=== PATIENT | female | born 1990 | race Caucasian/White ===

== ENCOUNTER 2020-05-11 11:43 | Outpatient (CLI) | payer OTHER, SELFPAY ==
--- NOTE | ~2020-05-11 | XR_ITS ---
EXAMINATION: XR hysterosalpingogram DATE: 05/11/2020 13:10 INDICATION: Infertility. TECHNIQUE: Fluoroscopy was performed by the radiologist during contrast infusion into the endometrial cavity of the uterus by the primary physician. Fluoroscopy exposure time was 0.1 minutes. The total number of images was 5. FINDINGS: The intracranial cavity is normal in morphology. The fallopian tubes are normal. There is n ormal free intraperitoneal spillage of contrast on either side. IMPRESSION: 1. Normal hysterosalpingogram. Reviewed, dictated and finalized at location A.
== END 2020-05-11 11:44 | disposition home or self-care (01) ==
PROVIDERS: PCP Registered Nurse; Visit Provider Obstetrics & Gynecology
DX: N97.9 Female infertility, unspecified (principal)
CPT/HCPCS: 58340; 74740; Q9966

== ENCOUNTER 2021-01-13 15:24 | Outpatient (CLI) | payer OTHER, SELFPAY ==
--- NOTE | ~2021-01-13 | US_ITS ---
EXAMINATION: US OB <= 14 weeks fetus EXAM DATE: 01/13/2021 16:08 INDICATION: For growth, dating. 1st trimester. TECHNIQUE: Pelvic obstetrical transabdominal sonogram was performed by a technologist. There are mu ltiple grayscale and Doppler images available for interpretation. There are no earlier studies of th is gestation for comparison. FINDINGS: Uterus measures 8.5 x 6.0 x 6.1 cm. There is intrauterine gestation sac. pole with heart rate confirmed at 163 beats per minute. The 1.5 cm crown-rump length corresponds to estimated gestational age by ultrasound of 7 weeks 6 days, estimated date of confinement 08/26/2021. Yolk sac i s identified. There is no sonographic evidence of subchorionic hemorrhage. The ovaries are both i dentified and are morphologically normal, vascular flow confirmed. IMPRESSION: Early live intrauterine gestation, age by ultrasound 7 weeks 6 days. Reviewed, dictated and finalized at location A. ARGE SUPERVISOR IMPRESSION: Early live intrauterine gestation, age by ultrasound 7 weeks 6 day s.
== END 2021-01-13 15:25 | disposition home or self-care (01) ==
PROVIDERS: PCP Registered Nurse; Visit Provider Student in an Organized Health Care Education/Training Program
DX: Z36.9 Encounter for antenatal screening, unspecified (principal); Z3A.01 Less than 8 weeks gestation of pregnancy
CPT/HCPCS: 76801

== ENCOUNTER 2021-07-20 16:33 | Outpatient (CLI) | payer OTHER, SELFPAY ==
--- NOTE | ~2021-07-20 | US_ITS ---
US OB follow up DATE: 07/20/2021 17:09 INDICATION: Evaluation of growth TECHNIQUE: Real-time imaging and Doppler analysis COMPARISON: 01/13/2021 obstetrical ultrasound FINDINGS: Live galvez intrauterine gestation, fetus in vertex presentation, longitudinal lie. Feta l heart rate 153 bpm. Fundal placenta. Amniotic fluid index measures 14.7 cm. (5th percentile TRANG: 7.9 cm; 95th percentile TRANG: 24.9 cm) Biparietal diameter 8.57 cm; 34 weeks 4 days Head circumference 30.66 cm; 34 weeks 1 day Abdominal circumference 30.44 cm; 34 weeks 3 days Femur length 6.59 cm; 34 weeks Composite age by Hadlock formula is 34 weeks 2 days +/- 2 weeks 3 days with TIAN of 08/29/2021, compare d to TIAN of 08/26/2021 based on the 01/13/2021 obstetrical ultrasound examination. Estimated weight is 2388 +/- 358.1 g. Femur length/BPD 76.92, within normal range of 71.0-87.0 Head circumference/abdominal circumference 1.01, within normal range of 0.94-1.11 Femur length/abdominal circumference 21.65, within normal range of 20.00-24.00 Femur length/head circumference 21.49, within normal range of 19.60-21.94 IMPRESSION: Normal interval growth since 01/13/2021 Reviewed, dictated and finalized at Location A. Reviewed, dictated and finalized at location A.
== END 2021-07-20 16:34 | disposition home or self-care (01) ==
LOC: ANHIMG 16:33
PROVIDERS: PCP Registered Nurse; Visit Provider Student in an Organized Health Care Education/Training Program
DX: Z34.93 Encounter for supervision of normal pregnancy, unspecified, third trimester (principal); Z3A.34 34 weeks gestation of pregnancy
CPT/HCPCS: 76816

== ENCOUNTER 2021-08-02 08:04 | Inpatient (IN) | payer OTHER, SELFPAY ==
[2021-08-02] VITALS (30 sets, daily range): BP systolic 71–146; BP diastolic 34–97; PULSE 70–107; RESP 16; TEMP 36.4–37.3; O2SAT 97; BMI 31.0
--- NOTE | 2021-08-02 08:04 | LDADM ---
This patient, Ania Bolanos, was admitted to Labor/Delivery/Recovery 108 on 08/02/21 at 08:04. Plans for labor, pain management and were discussed with patient. Patient/family oriented to hospital policies and general routines including ID bracelet, bed and alarms, visiting hours, pain management, procedures, bathroom and other care routines, personal items, smoking policy, room service/diet and guest tray routines, infant security routines, and visiting hours. Patient/Family are encouraged to report perceived risks to care and to ask questions if they do not understand what they are told or what they should do. See OBIX for further documentation.
[2021-08-02] MEDS: AMPICILLIN 2 GM/NS 100 ML 2 GM/100 ML BAG IVPB (09:48)
[2021-08-02] MEDS: LACTATED RINGERS 1,000 ML 125 ML IV CONT ×2 (09:49→19:45)
[2021-08-02 09:57] LABS: Basophils Percent Auto 0.3 % (0.2-1.2); Eosinophils Absolute Auto 0.1 K/mm3 (0-0.3); Eosinophils Percent Auto 0.9 % (0-4.4); Hematocrit 40.3 % (37.0-47.0); Hemoglobin 13.5 g/dL (12.0-15.0); Immature Granulocyte Absolute 0.04 K/mm3 (0.00-0.031); Immature Granulocyte Percent A 0.5 % (0-0.5); Lymphocytes Absolute Auto 0.68 K/mm3 (0.9-3.2); Lymphocytes Percent Auto 9.2 % (18.3-44.2); Mean Corpuscular HGB Conc 33.5 g/dl (32-36); Mean Corpuscular Hemoglobin 31.7 pg (26-34); Mean Corpuscular Volume 94.6 fl (80-100); Mean Platelet Volume 11.5 fl (7.4-10.4); Monocytes Absolute Auto 0.6 K/mm3 (0.1-0.6); Monocytes Percent Auto 8.4 % (2.6-8.5); Neutrophils Percent Auto 80.7 % (45.5-73.1); Platelet Count Result 214 k/mm3 (150-375); Red Blood Count 4.26 M/mm3 (4.2-5.4); Red Cell Distribution Width 11.9 % (11.5-14.5); White Blood Count 7.4 K/mm3 (4.5-10.0)
[2021-08-02] MEDS: BETAMETHASONE SOD PHOS/ACETATE 30 MG/5 ML VIAL 12 MG IM (10:55)
--- NOTE | 2021-08-02 11:12 | P.PNAN_ITS ---
Anes - Eval Pre Procedure Date/Time: 08/02/21 11:12 Pre Op Diagnosis: leaking Patient Data Age: 31 Gender: F Height: Weight: Last Vital Signs Pulse 81 08/02/21 10:31 BP 132/71 08/02/21 10:31 Allergies Allergy/AdvReac Type Severity Reaction Status Date / Time adhesive tape Allergy Blister Verified 07/28/21 15:47 Home Medications Medication Instructions Recorded Confirmed Type PNV cmb#95-ferrous fumarate-FA 1 tablet PO DAILY 07/28/21 07/28/21 History [] cetirizine [Zyrtec] 10 mg PO DAILY 07/28/21 07/28/21 History famotidine [Pepcid] 20 mg PO DAILY 07/28/21 07/28/21 History Laboratory Tests 08/02/21 08/02/21 08/02/21 09:43 09:43 09:43 WBC 7.4 K/mm3 K/mm3 (4.5-10.0) RBC 4.26 M/mm3 M/mm3 (4.2-5.4) Hgb 13.5 g/dL g/dL (12.0-15.0) Hct 40.3 % % (37.0-47.0) MCV 94.6 fl fl (80-100) MCH 31.7 pg pg (26-34) MCHC 33.5 g/dl g/dl (32-36) RDW 11.9 % % (11.5-14.5) Plt Count 214 k/mm3 k/mm3 (150-375) MPV 11.5 fl H fl (7.4-10.4) Immature Gran % (Auto) 0.5 % % (0-0.5) Neut % (Auto) 80.7 % H % (45.5-73.1) Lymph % (Auto) 9.2 % L % (18.3-44.2) [place] % (Auto) 8.4 % % (2.6-8.5) Eos % (Auto) 0.9 % % (0-4.4) Baso % (Auto) 0.3 % % (0.2-1.2) Lymph # (Auto) 0.68 K/mm3 L K/mm3 (0.9-3.2) [place] # (Auto) 0.6 K/mm3 K/mm3 (0.1-0.6) Eos # (Auto) 0.1 K/mm3 K/mm3 (0-0.3) Baso # (Auto) 0.0 K/mm3 K/mm3 (0.0-0.1) Abs Immat Gran (auto) 0.04 K/mm3 H K/mm3 (0.00-0.031) Absolute Neuts (auto) 6.0 K/mm3 K/mm3 (1.3-6.7) Absolute Nucleated RBC 0.0 K/mm3 K/mm3 (0.0-0.012) Nucleated RBC % 0.0 % % (0.0-0.2) RPR Pending Blood Type A Positive Antibody Screen Negative Patient hx anesthesia problems: none Family hx anesthesia problems: none [facility] Family History Family History Other No pertinent family history Social History Social History Substance use: never Spiritual care concerns: No Exam Day of Procedure 08/02/21 11:12 Patient weight: obese Heart: regular rate and rhythm Lungs: normal air movement Airway: Mallampati scale class II Neurological: alert and oriented
--- NOTE | 2021-08-02 13:25 | P.HPUP_ITS ---
History and Physical Update Update Date/Time: 08/02/21 13:25 31 yo at 36w who presents with PPROM. Pt denies any vaginal bleeding or regular contractions. She endorses good movement. Her is complicated by IUI , asthma and GERD. Pt has received her [place]. History and Physical has been reviewed, including an updated exam of the patient. There are NO changes in the patient's condition. Risks, benefits, and alternatives have been discussed and questions answered. Patient agrees to proceed with procedure. A/P: 31 yo at 36w who presents with PPROM admit to L&D routine admission orders BTMS for lung maturity GBS unknown, will start abx FHT cat 1 continuous EFM expectant management
--- NOTE | 2021-08-02 13:27 | PM.OBPNLAB ---
Pain Control Date/time seen: 08/02/21 13:27 Pain control: tolerating well Pelvic Exam Dilation (cm): 1 Effacement (%): 50 station: -3 Comments: Forebag noted Contractions Monitor mode: External Contraction pattern: Regular Status status: Category l Assessment and Plan Assessment: active labor Comments: AROM for scant amount of blood tinged fluid. Pt desires minimal interventions. Will cotninue to monitor. If no cervical change in 2 hours, will start pitocin augmentation.
[2021-08-02] MEDS: AMPICILLIN 1 GM/NS 50 ML 1 GM/50 ML BAG IVPB ×2 (13:42→18:00)
[2021-08-02] MEDS: OXYTOCIN 30 UNITS/NS 500 ML 30 UNITS/500 ML BAG 6 UNITS IV CONT (14:32)
--- NOTE | 2021-08-02 20:38 | PM.OBPRVD ---
OB - Delivery Note Procedure Procedure: Patient pushed for a spontaneous vaginal delivery. A nuchal cord x1 was noted and reduced on the perineum. The fetus was delivered atraumatically and placed on the maternal abdomen. The cord was clamped and cut after 1 minute of life. The cord was double clamped and cut and a segment of cord was collected for cord gases. Cord blood was collected for blood type and Coomb's testing. The placenta delivered spontaneously and was noted to be intact. The perineum was inspected and there was a 1st degree perineal laceration. The laceration was repaired with 3-0 vicryl in the usual fashion. The uterus was firm and good hemostasis was noted. The patient and fetus were stable in the delivery room. events: Labor < 37 Weeks and Premature Rupture of Membrane Intrapartal events: None Induction method: none Delivery augmentation: rupture of membranes and pitocin Delivery monitor: external FHT Route of delivery: Episiotomy description: None Laceration Description: Perineal - 1st Degree Delivery repair: vicryl Specimen: No Quantitative Blood Loss (ml): 200 Anesthesia type: Local Disposition: floor () Complications: No immediate complications Baby Date of : 08/02/21 Time of : 20:12 Weeks of gestation at delivery: 36 Infant gender: Male presentation: vertex position: Right Occiput Anterior Placenta delivery description: Spontaneous cord vessel description: 3 Vessels and Nuchal Cord score one minute: 8 score five minutes: 8
[2021-08-02] MEDS: ACETAMINOPHEN 325 MG TABLET 650 MG PO (21:21)
[2021-08-02] MEDS: OXYTOCIN 30 UNITS/NS 500 ML 30 UNITS/500 ML BAG 125 UNITS IV CONT (21:30)
--- NOTE | 2021-08-02 23:19 | OBPPTRN ---
Patient transferred to post room #290 via wheelchair. Support person present. Oriented to unit, room, information board, rooming in, admission packet and security measures. Patient verbalizes understanding.
[2021-08-02] MEDS: IBUPROFEN 600 MG TABLET PO (23:53)
[2021-08-03] VITALS (7 sets, daily range): BP systolic 96–113; BP diastolic 51–70; PULSE 62–75; RESP 16; TEMP 36.5–37.1; O2SAT 96–98
[2021-08-03 06:02] LABS: Hematocrit 37.1 % (37.0-47.0); Hemoglobin 12.6 g/dL (12.0-15.0)
[2021-08-03 08:01] LABS: Rapid Plasma Reagin Non-Reactive (NonReactive)
--- NOTE | 2021-08-03 08:35 | P.PNOB_ITS ---
OB - PN: Subj Subjective Date/time seen: 08/03/21 08:35 Patient comments: no complaints, pain well controlled and tolerating diet [place] feeding status: exclusively breast feeding Narrative: patient doing well this AM. No complaints. Pain is well controlled. She reports minimal bleeding. She is ambulating and voiding without difficulty. She is tolerating PO. She denies N/V, fever, chills. OB - PN: Obj Data Labs CBC & Chem 7: 08/03/21 03:24 Labs: Laboratory Results - last 24 hr 08/02/21 08/02/21 08/02/21 09:43 09:43 09:43 WBC 7.4 RBC 4.26 Hgb 13.5 Hct 40.3 MCV 94.6 MCH 31.7 MCHC 33.5 RDW 11.9 Plt Count 214 MPV 11.5 H Immature Gran % (Auto) 0.5 Neut % (Auto) 80.7 H Lymph % (Auto) 9.2 L [place] % (Auto) 8.4 Eos % (Auto) 0.9 Baso % (Auto) 0.3 Lymph # (Auto) 0.68 L [place] # (Auto) 0.6 Eos # (Auto) 0.1 Baso # (Auto) 0.0 Abs Immat Gran (auto) 0.04 H Absolute Neuts (auto) 6.0 Absolute Nucleated RBC 0.0 Nucleated RBC % 0.0 RPR Non-reactive Blood Type A Positive Antibody Screen Negative 08/03/21 03:24 WBC RBC Hgb 12.6 Hct 37.1 MCV MCH MCHC RDW Plt Count MPV Immature Gran % (Auto) Neut % (Auto) Lymph % (Auto) [place] % (Auto) Eos % (Auto) Baso % (Auto) Lymph # (Auto) [place] # (Auto) Eos # (Auto) Baso # (Auto) Abs Immat Gran (auto) Absolute Neuts (auto) Absolute Nucleated RBC Nucleated RBC % RPR Blood Type Antibody Screen OB - PN A/P Plan day: 1 Plan: routine care Comments: patient doing well H/H stable plan for infant circumcision today. Risks, benefits, alternatives discussed. Consent obtained continue routine care anticipate d/c home tomorrow Time Spent With Patient Time: Total time spent is greater than 50% in coordination of care (as documented) at patient's floor/unit and/or counseling patient: Time with patient: less than 15 minutes Review of Systems Review of Systems: All systems reviewed & are unremarkable except as noted in HPI and below Exam Const: General: comfortable and no acute distress Resp: Effort & Inspection: normal respiratory effort Cardio: Rate: regular rate GI: GI Palp: Yes Soft to palpation and No Tenderness to palpation present (GI) Auscultation: normal bowel sounds Other: fundus firm and below umbilicus. Psych: Affect: normal affect
--- NOTE | 2021-08-03 09:00 | PC.NURSE ---
Mother called out for assist with feeding, reporting has been eager to . is able to freely thrust tongue past gum ridge and flange both lips. Skin is intact on both nipples, no redness and bruising noted. Discussed the near term/ and possible precautions of weak latch, sleepy feedings, needing to wake each feeding, inability to maintain latch and poor milk transfer which increases chance for increased weight loss, jaundice and low milk supply. Stressed the importance of adequate breast stimulation by pumping, self-expression and skin to skin. Reviewed infant feeding cues, frequencies, duration of feedings, feeding elimination flow sheet, and signs of adequate intake. Demonstrated stimulation techniques to wake infant for feeding. Assisted with to breast. Reviewed positioning/alignment in cross cradle, holding breast in ?U? hold and guided asymmetrical latch on. Discussed rational for each. able to latch correctly. Reviewed signs of a correct latch, effective nursing and suck swallow ratio. Infant nursed sleepily with eager bursts, with steady draws and frequent occasional swallowing noted followed with long pausing. Reviewed the difference of effective vs ineffective nursing. Suggested mother stimulate while feeding to increase stimulation, increase intake and to assist with maintaining deep latch. would slip to shallow latch, mother reports tenderness. Demonstrated how to adjust latch more deeply while feeding. Mother reports she can feel change in latch and has no tenderness. Nipple care reviewed of lanolin after feedings, warm compresses as needed.
[2021-08-03] MEDS: IBUPROFEN 600 MG TABLET PO ×2 (12:21→19:34)
[2021-08-03] MEDS: MULTIVIT/MIN/PREN/FOL AC/IRON TABLET 1 TAB PO (16:35)
[2021-08-03] MEDS: DOCUSATE SODIUM 100 MG CAPSULE PO (16:35)
[2021-08-03] MEDS: ACETAMINOPHEN 325 MG TABLET 650 MG PO (16:36)
[2021-08-03] MEDS: FAMOTIDINE 20 MG TABLET PO (16:36)
[2021-08-03] MEDS: WITCH HAZEL 40 PADS 1 PAD TOPICAL (19:36)
[2021-08-03] MEDS: LANOLIN (LANSINOH) 7.5 GM CREAM 1 APPLIC TOPICAL (19:36)
--- NOTE | 2021-08-03 21:25 | PC.NURSE ---
Patient viewed the discharge video Mother & Baby Care, The First Two Weeks . Patient was given the opportunity and encouraged to ask questions. Patient verbalized understanding of information shared and has been given the mother/baby guide for home reference.
[2021-08-04] MEDS: IBUPROFEN 600 MG TABLET PO ×2 (02:14→07:59)
--- NOTE | 2021-08-04 04:30 | PC.NURSE ---
Breast pump provided due to maternal request. Instructions given on breast pump care and usage, pumping schedule, nipple care, and collection and storage of breast milk. Encouraged [id number], breast massage and manual expression to stimulate supply. Pumping log provided and reviewed. Assessed patient for correct flange size, 21mm, placement and draw. Patient verbalizes and demonstrates understanding of instructions.
--- NOTE | 2021-08-04 07:00 | PC.NURSE ---
Pt introductions made and plan of care discussed per post , pain management, breast feeding and supplementing, daily care activities and pending discharge to home. PT received instructions and education this shift per one to one discussion, mom baby care guide and demonstration. No barriers to learning identified and mom and spouse both recipients of such instructions. PT verbalized understanding of such care.
--- NOTE | 2021-08-04 07:29 | PM.OBDSVD ---
DS: Admitting Diagnosis Discharge Date 08/04/21 Admitting Diagnosis PPROM intrauterine labor OB - DS: Summary OB Procedures : None OB Procedures Intrapartum: Spontaneous Vag Delivery OB Procedures: : None Peripartum Data Laceration Description: Perineal - 1st Degree Status at Discharge Functional status at discharge: independent ambulation Overall status at discharge: patient is back to baseline Time Spent with Patient Time attestation: Total time spent providing and/or coordinating discharge services: Time spent: Less than 30 minutes Exam Const: General: comfortable and no acute distress Resp: Effort & Inspection: normal respiratory effort Auscultation: clear to auscultation bilaterally Cardio: Rate: regular rate GI: GI Palp: Yes Soft to palpation Auscultation: normal bowel sounds Other: Fundus firm below umbilicus Psych: Appearance: grossly normal Mental Status: mental status grossly normal Affect: normal affect DS: Data Data Completed and Pending Pending studies at discharge: Pending at discharge 08/03/21 07:29 Surgical [PTH] Routine Labs on day of discharge: Labs from last 24 hours 08/02/21 09:43 RPR Non-reactive Discharge Plan Discharge Discharging Clinician: Ben Mccollum Anticipated Discharge Date/Time: 08/04/21 07:26 Patient Disposition: Home, Self-Care Activity: as tolerated and pelvic rest Diet: regular Patient Instructions: Antibiotic Form, Vaginal Delivery (DC) Stand Alone Forms: General Discharge Information Follow-up/Referrals: Ben Mccollum MD [Physician] - 4 Weeks Discharge Medications: New acetaminophen [Mapap (acetaminophen)] 325 mg Tablet 650 mg PO Q6H PRN (Reason: Mild Pain (1-3) Or Headache) Qty: 30 RF: 0 ibuprofen 600 mg Tablet 600 mg PO Q6H PRN (Reason: Cramping) Qty: 30 RF: 0 Continued cetirizine [Zyrtec] 10 mg Tablet 10 mg PO DAILY RF: 0 famotidine [Pepcid] 20 mg Tablet 20 mg PO DAILY RF: 0 PNV cmb#95-ferrous fumarate-FA [] 28 mg iron- 800 mcg Tablet 1 tablet PO DAILY RF: 0 Date of admission: 08/02/21 08:04 Primary Care Provider: DaniellaSamara Admitting Provider: Ben Mccollum Attending physician on admission: Ben Mccollum Condition: Stable
[2021-08-04] MEDS: DOCUSATE SODIUM 100 MG CAPSULE PO (07:59)
[2021-08-04] MEDS: MULTIVIT/MIN/PREN/FOL AC/IRON TABLET 1 TAB PO (07:59)
[2021-08-04] MEDS: ACETAMINOPHEN 325 MG TABLET 650 MG PO (08:00)
[2021-08-04] MEDS: FAMOTIDINE 20 MG TABLET PO (08:02)
--- NOTE | 2021-08-04 08:30 | PC.NURSE ---
Mother is able to independently latch with appropriate positioning/alignment. She denies any nipple discomfort, is feeding as required and waking infant to feed if needed. Infant has had several effective feedings feedings are now followed with supplementation for increased jaundice. is currently meeting outcomes for weight, output, and feeding frequencies. is more awake and eager to feed today. Mother has initiated pumping and is able to pump without difficulties or discomfort after all feedings due to supplementation. Mother states she feels confident to continue current feeding plan at home. Mother has her own double electric pump for home use. Discussed increasing supplementation as requires to satisfactions. Reviewed paced feeding and suggested to stop when infant is satisfied, as long as is having required output. With increased supplementation may not want to feed for 4 hours. Mother will continue to pump on feeding schedule and will increase session to 20 minutes if pumping every 4 hours. Reviewed once mother?s milk is established and is effectively feeding infant may have increased intake with nursing. If infant is effective feeding with long draws and frequent swallowing noted , may be ready to decrease/discontinue supplementation. Advised not to discontinue supplement until ICP, Follow-Up RN or LC has a pre/post weighted evaluation of infant feeding. Reviewed transition to breast milk, signs of adequate intake, and engorgement/relief. Instructed to call ICP if intake/output less than required. Reviewed regular medications mother is taking. Information provided per Ava. Reviewed community resources on the [employer] website and in the Mom/Baby guide. Information on outpatient services provided. Mother has no further questions at this time.
[2021-08-04 08:40] VITALS: BP 111/57; PULSE 64; RESP 16; TEMP 36.5; O2SAT 98
--- NOTE | 2021-08-04 11:45 | PC.NURSE ---
PT discharged to home ambulatory accompanied by spouse and and taken to waiting car. follow up appts confirmed
[2021-08-05 09:44] VITALS: BP 121/66; PULSE 71; RESP 16; TEMP 37.2; O2SAT 98
== END 2021-08-04 11:45 | disposition home or self-care (01) | DRG 807 ==
LOC: ANHLDR 09:55 → ANHOB2 23:23
PROVIDERS: Admitting Provider Student in an Organized Health Care Education/Training Program; PCP Registered Nurse; Visit Provider Student in an Organized Health Care Education/Training Program
DX: O42.913 Preterm premature rupture of membranes, unspecified as to length of time between rupture and onset of labor, third trimester (principal); Z37.0 Single live birth; O69.81X0 Labor and delivery complicated by cord around neck, without compression, not applicable or unspecified; O70.0 First degree perineal laceration during delivery; O99.824 Streptococcus B carrier state complicating childbirth; O76 Abnormality in fetal heart rate and rhythm complicating labor and delivery; Z3A.36 36 weeks gestation of pregnancy
CPT/HCPCS: 36415; 84112; 85014; 85018; 85025; 86592; 86850; 86900; 86901; 88307; A9270; J0290; J0702; J2590; J7120

== ENCOUNTER 2021-08-31 12:16 | Outpatient (RCR) | payer OTHER, SELFPAY ==
--- NOTE | 2021-08-31 15:43 | PC.NURSE ---
1216 Pt seen by her request because of sore nipples and burning nipples after feedings. She reports baby has been nursing exclusively, and at 2 week check up on 08/16/2021, weighed 7-11. Baby's weight today, 8-15.8 She reports her milk is in. Breasts appear symmetrical, and full pre-feeding; softer, post feeding. Baby able to latch and maintain latch and demonstrated rhythmic sucking. Mother assisted with cross-cradle position and football position; she was shown positioning, alignment, use of c-hold and nose to nipple latch on technique. Baby was able to latch with apparent deep latch and mother stated latch was deeper than she has been getting and was comfortable; also mother taught how to adjust infant to even deeper latch while on the breast, with her reporting feeling the difference. Pillows were used for support to keep close to mom with good alignment; mother reports she felt good support and realizes she needs more support at home than just her breast feeding pillow. Mother's nipple on her L side round when infant came off breast. On the R, nipple looked more pinched, however, some better with use of football position. Mother taught what to look for and to work to get to latch deep and stay deep. She does report that with the feeding today, she does not feel the burning she had been feeling. Mother reports feeling much better about latching now, and glad she came . She was encouraged to call to LC again if continued problems. She agreed. Mother also given suggestions for nipple care, her own breast milk and air drying, Lanolin, hydrogel pads and warm tea bags; she was referred to her Mother Baby Guide she was given in the hospital. Nurse also encouraged mother to feed baby 8-12 times a day, waking at 3 hours to feed during the day and allowing 3-4 hour interval at night. She reports appointment with Dr. Castro next week. Baby had a large wet diaper during the feeding. Mother very attentive to all instructions and voiced understanding of information shared.
== END 2021-11-29 23:59 | disposition home or self-care (01) ==
LOC: ANHOBOP 12:16
PROVIDERS: PCP Registered Nurse; Visit Provider Pediatrics
DX: Z39.1 Encounter for care and examination of lactating mother (principal)
CPT/HCPCS: 99213; G0463

== ENCOUNTER 2024-04-29 13:33 | Outpatient (CLI) | payer OTHER, SELFPAY ==
--- NOTE | ~2024-04-29 | US_ITS ---
EXAMINATION: US axilla LT DATE: 04/29/2024 13:49 INDICATION: Mass of LT Axilla . TECHNIQUE: Grayscale and Doppler ultrasound images of the left axilla were obtained. COMPARISON: None. FINDINGS: The area of clinical concern in the left axilla was sonographically interrogated revealing a 1.6 x 0.5 x 0.4 cm lymph node, measuring 3 mm in short axis diameter. No vascular flow by color Dop pler. No abnormal solid or cystic mass detected. IMPRESSION: Normal left axillary lymph node. Reviewed, dictated and finalized at location K.
== END 2024-04-29 13:34 ==
LOC: GOSHIMG 13:36
PROVIDERS: PCP Registered Nurse; Visit Provider Registered Nurse
DX: N63.32 Unspecified lump in axillary tail of the left breast (principal)
CPT/HCPCS: 76882

== ENCOUNTER 2025-03-09 11:39 | Outpatient (RCR) | payer OTHER, SELFPAY ==
--- OUTSIDE RECORDS SUMMARY | 2025-03-09 13:17 | XMS_ITS | Encounter Summary ---
Author Organization [facility] Address [address] [place] [id number] Care Team Providers Care Diesel Engine Fitter Name Role Phone Samara Reid Primary Care Provider [phone] Reason for Visit * Reason Onset Date Comments Fever 05/08/2024 Encounter Details Date Type Department Care Team (Late st Contact Info) Description 05/08/2024 Motostranot Message Enc [facility] Family & Internal Medicine [facility] [address] [place] [address] Samara Reid APNP [address] [place], [place] [id number] Fever after traveling Social History Tobacco Use Types Packs/Day Years Used Date Smoking Tobacco: Never Smokeless Tobacco: Never Alcohol Use Standard Drinks/Week Comments Yes 2 (1 standard drink = 0.6 oz pur e alcohol) socially AUDIT-C Answer Date Recorded Frequency of Alcohol Consumption Monthly or less 05/12/2019 Average Number of Drinks 1 or 2 019 Frequency of Binge Drinking Never 04/26 PHQ-2 Answer Date Recorded Patient Health Questionnaire-2 Score 0 06/28/2023 Comments No Sex and Gender Information Value Date Recorded Sex Assigned at Female 02/12/2025 11:31 AM CDT Legal Sex Female 5:38 PM CDT Gender Identity Not on file Sexual Orientation Not on file documented as of this encounter Progress Notes * THOM Esquivel - 05/08/2024 4:26 PM CDT Agree with plan * Mariza Baldwin MA - 05/08/2024 4:07 PM CDT Spoke with patient in detail on sx. The patient states she has not had a fever since last night. The patient reports slight cough and congestion. Color unknown. The patient was advised to try OTC decongestant medications and re-test for covid in 2-3 days. If patient is not better by Sunday I advised to r/c and schedule an appt. If sx worsen over the weekend she needs eval at an . The patient v/u and agrees with plan. Please advise if you would like anything different. documented in this encounter Plan of Treatment Not on file documented as of this encounter Visit Diagnoses Not on filedocumented in this encounter Care Teams Diesel Engine Fitter Relationship Specialty Start Date End Date Samara Reid APNP [address] [place] [id number] PCP - General NURSE PRACTITIONER 05/12/19 documented as of this encounter
--- OUTSIDE RECORDS SUMMARY | 2025-03-09 13:17 | XMS_ITS | Clinical Summary ---
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 Gender Identity Not on file Sexual Orientation Not on file Plan of Treatment Health Maintenance Due Date Last Done Comments Hepatitis C Virus (HCV) Screening 1989 Hepatitis B Immunization (1 of 3 - 19+ 3-dose series) 2008 Influenza Immunization (#1) 2024 SARS-COV-2 Immunization ( season) 2024 10/31/2021 Respiratory Syncytial Virus (RSV) Immunization (Adult) (1 - 1-dose 75+ series) 2064 DTaP/Tdap/Td Immunization Discontinued 2020, 12/15/2015, 04/08/2003, Additional history exists TdaP Immunization Completed 07/07/2021 Meningococcal Immunization (ACWY) Aged Out No longer eligible based on patient's age to complete this topic Pneumococcal Immunization Combined Aged Out No longer eligible based on patient's age to complete this topic Rotavirus Immunization Aged Out No lo nger eligible based on patient's age to complete this topic
--- OUTSIDE RECORDS SUMMARY | 2025-03-09 13:17 | XMS_ITS | Encounter Summary ---
Author Organization [facility] Address [address] [place] [address] Care Team Providers Care Aircraft Detail Draftsperson Name Role Phone Samara Reid Primary Care Provider [phone] Encounter Details Date Type Department Care Team (Late st Contact Info) Description 02/17/2025 GeoVantagehart Message Enc [facility] Family & Internal Medicine [facility] [address] [place] [phone] Samara Reid APNP [address] [place] [address] Referral to ENT Social History Tobacco Use Types Packs/Day Years [...] Date Recorded Patient Health Questionnaire-2 Score 0 02/12/2025 Comments No Sex and Gender Information Value Date Recorded Sex Assigned at Female 02/12/2025 11:31 AM CDT Legal Sex Female 5:38 PM CDT Gender Identity Not on file Sexual Orientation Not on file documented as of this encounter Plan of Treatment Not on file documented as of this encounter Visit Diagnoses Not on filedocumented in this encounter Care Teams Aircraft Detail Draftsperson Relationship Specialty Start Date End Date Samara Reid APNP [address] [place] [address] [phone] PCP - General NURSE PRACTITIONER 05/12/19 documented as of this encounter
--- OUTSIDE RECORDS SUMMARY | 2025-03-09 13:17 | XMS_ITS | Clinical Summary ---
Author Organization [facility] Address [address] [place] [address] Care Team Providers Care Yeast Stacker Name Role Phone Samara Reid THOM Primary Care Provider [phone] Allergies Active Allergy Reactions Criticality Noted Date Comments Tape Hives 06/23/2022 Medications cetirizine 10 MG tablet Take 1 tablet (10 mg total) by mouth daily. Active albuterol sulfate HFA (VENTOLIN HFA) 108 (90 Base) MCG/ACT inhalerIndicatio ns:Mild intermittent asthma without complication (HHS/HCC) Inhale 2 puffs into the lungs every 6 (six) hours as needed for Wheezing. 18 g 1 04/22/20 24 Active fluticasone propionate (FLONASE) 50 MCG/ACT nasal sprayIndications :Seasonal allergies 2 sprays by Each Nostril route daily. 18.2 mL 2 08/05/20 24 Active mupirocin (BACTROBAN) 2 % ointment APPLY TO AFFECTED AREA 3 TIMES A DAY FOR 7 DAYS 02/05/20 25 Active SUMAtriptan (IMITREX) 25 MG tabletIndication s:Migraine with aura and without status migrainosus, not intractable Take 1 tab by mouth at migraine onset. May repeat dose in 2 hours if needed. Max of 8 tablets (200 mg) in a 24 hour period. 8 tablet 2 08/04/20 24 025 Discontinued(P t. elected to discontinue med) meclizine (ANTIVERT) 25 MG tabletIndication s:Dizziness Take 1 tablet (25 mg total) by mouth 3 (three) times daily as needed for Dizziness. 60 tablet 1 08/04/20 24 025 Discontinued(P t. elected to discontinue med) mupirocin (BACTROBAN) 2 % ointmentIndicati ons:Nasal lesion Apply topically 3 (three) times daily for 7 days. 22 g 02/05/20 25 025 Active Problems Problem Noted Date Diagnosed Date Mild intermittent asthma without complication (H HS/[facility]) 05/12/2019 Lactose intolerance 05/12/2019 Seasonal allergies 05/12/2019 Encounters Date Type Department Care Team Description 02/26/2025 Telephone [facility] Internal [address] [phone] Samara Reid APNP Lab Results 02/17/2025 MyChart Message Enc [address] [phone] Samara Reid APNP Referral to ENT 02/13/[address] [phone] Samara Reid APNP Lab Results 02/12/2025 11:20 AM CDT Office Visit [address] [phone] Samara Reid APNP Physical 02/12/2025 - 02/12/2025 11:59 PM CDT Hospital En[facility] [address] Discharge Disposition: Home or Self Care (Routine Discharge) 02/12/[address] [phone] Samara Reid APNP Pre Appt Labs 02/12/2025 Travel 02/04/2025 MyChart Message Enc [address] [phone] Samara Reid APNP sore in nose from Last 3 Months Immunizations Immunization Administration Dates Next Due Dtap (Generic) 04/27/1994, 0,1989,1988,1989 Fluzone 6 Months+ Quad (0.5 mL Prefilled Syringe) 11/07/2021 Hepatitis B (Generic Peds) 03/09/1999,10/13/1998 ,09/13/1998 Hib (Generic) 06/17/1990 Influenza Adult (Generic) 08/28/2018 MMR (Generic) 12/09/1992,06/17/1990 PFIZER COVID-19 (ORIGINAL FORMULATION, PURPLE CAP) mRNA, LNP-S, PF, 30 MCG/0.3 ML DOSE 03/17/2021,02/21/2021 Polio Ipv (Generic) 04/27/1994, 0,1989,1988 Td 12/15/2015 Td (Generic) 04/08/2003 Tdap (Adacel) 07/07/2021 Family History Medical History Relation Comments Arthritis Father Cancer Father intestinal Early Hearing Loss Father Lupus Maternal Aunt Diabetes Maternal Grandmother Hypertension Maternal Grandmother Stroke Maternal Grandmother Alcohol/Drug Mother Early Hearing Loss Mother Mental Health Mother Early Paternal Grandfather Diabetes Paternal Grandmother Kidney Disease Paternal Grandmother Relation Status Comments Brother Alive Father Alive Maternal Aunt Maternal Grandfather Alive Maternal Grandmother Mother Alive Paternal Grandfather Paternal Grandmother Sister Alive Social History Tobacco Use Types Packs/Day Years Used Date Smoking Tobacco: Never Smokeless Tobacco: Never Tobacco Cessation:Counseling Given: No Alcohol Use Standard Drinks/Week Comments Yes 2 [...] on file Sexual Orientation Not on file Last Filed Vital Signs Vital Sign Reading Time Taken Comments Blood Pressure 122/68 02/12/2025 11:31 AM CDT Pulse 71 02/12/2025 11:31 AM CDT Temperature 36.8 C (98.2 F) 02/12/2025 11:31 AM CDT Respiratory Rate 16 02/12/2025 11:3 1 AM CDT Oxygen Saturation 98% 02/12/2025 11: 31 AM CDT Inhaled Oxygen Concentration - - Weight 75.2 kg (165 lb 11.2 oz) 025 11:31 AM CDT Height 167.6 cm (5' 6) 02/12/2025 11:3 1 AM CDT Body Mass Index 26.74 02/12/2025 11:31 AM CDT Plan of Treatment Health Maintenance Due Date Last Done Comments Cervical Cancer Screening Pap Smear (Age 30 to 64) Every 3 Years 1989 Cervical Cancer Screening Pap with HPV Testing (Age 30 to 64) Every 5 Years 2019 Cervical Cancer Screening with HPV 2019 Pneumococcal Vaccine: Pediatrics (0 to 5 Years) and At-Risk Patients (6 to 49 Years) (1 of 2 - PCV) 05/13/2025 Postponed from 1995 (Patient Refused) Annual Physical 02/12/2026 02/12/2025, 08/0 01/2023, 06/28/2022 COVID-19 Vaccine ( season) 2026 10/31/2021, 03/17/2021, 02/21/2021 Postponed from 07/27/2024 (Patient Refused) DTaP, Tdap and Td Vaccines (7 - Td or Tdap) 07/07/2031 07/07/2021, 12/15/2015, 04/08/2003, Additional history exists Hepatitis B Vaccines Completed 03/09/1999, 10/13/1998, 09/13/1998 PHQ-2 (Physician Filion) Completed 02/12/2025 Hepatitis C Completed 02/13/2025 HPV Vaccines Aged Out No longer eligi ble based on patient's age to complete this topic Meningococcal B Vaccine Aged Out No l onger eligible based on patient's age to complete this topic Meningococcal Vaccine Aged Out No sabrina hakeem eligible based on patient's age to complete this topic RSV Immunizations Under 20 Months Aged Out No longer eligible based on patient's age to complete this topic Procedures Procedure Name Priority Date/Time Associated Diagnosis Comments HEPATITIS C ANTIBODY Routine 02/13/2025 12:53 PM CDT Need for hepatitis C screening test CULTURE STREP A Routine 02/12/2025 11:53 AM CDT Sore throat COLLECTION VENOUS BLOOD VENIPUNCTURE Routine 02/12/2025 11:37 AM CDT General medical examination Screening for endocrine disorder Screening for cholesterol level DIRECT BILIRUBIN Routine 02/12/2025 11:3 7 AM CDT Serum total bilirubin elevated CBC W/DIFF AUTOMATED Routine 02/12/2025 11:37 AM CDT General medical examination LIPID PANEL Routine 02/12/2025 11:37 AM CDT General medical examination Screening for cholesterol level TSH W/REFLEX Routine 02/12/2025 11:37 AM CDT General medical examination Screening for endocrine disorder COMPREHENSIVE METABOLIC PANEL Routine 02/12/2025 11:37 AM CDT General medical examination STREP A RAPID Routine 02/12/2025 Sore throat from Last 3 Months Results * HEPATITIS C AB ([facility] ONLY) (02/13/2025 12:53 PM CDT) HEPATITIS C AB NON-REACTI VE NON-REACT KEIRA 02/13/2025 6:24 PM CDT [facility] Comment: ANTIBODIES TO HCV NOT DETECTED. DOES NOT EXCLUDE THE POSSIBILITY OF EXPOSURE TO HCV. 02/13/2025 12:5 3 PM CDT [facility] Final Resul t [facility] [address] [place] [address], [id number] * CULTURE STREP A (MG/SJS/SMD Only) (02/12/2025 11:53 AM CDT) Pathologist [facility] THROAT CULTURE STREP A ONLY Negative for Group A Streptococci Negative for Group A Streptococci 02/13/2025 6:29 PM CDT [facility] STRUCTURE OF ANTERIOR PORTION OF NECK / Unknown 02/12/2025 11:53 AM CDT Samara TOMAS MICROBIOLOGY - GENERAL ORDE RABLES Final Result Performing Organization Address City/[facility] Co de Phone Number [facility] [address] [place] [address], [place] [phone] * TSH W/REFLEX (02/12/2025 11:37 AM CDT) Pathologist [facility] TSH 2.042 0.358 - 3.740 uIU/ML 02/12/2025 7:34 PM CDT [facility] 02/12/2025 11:3 7 AM CDT [facility] Final Resul t Performing Organization Address [facility] Co de Phone Number [address] [address], [place] [phone] * (ABNORMAL) COMPREHENSIVE METABOLIC PANEL (02/12/2025 11:37 AM CDT) Pathologist [facility] SODIUM S/P/B 141 136 - 145 MMOL/L 02/12/2025 7:34 PM CDT [facility] POTASSIUM S/P/B 4.3 3.5 - 5.1 MMOL/L 02/12/2025 7:34 PM CDT [facility] CHLORIDE S/P/B 104 98 - 107 MMOL/L 02/12/2025 7:34 PM CDT [facility] CO2 28.2 21 - 32 MMOL/L 02/12/2025 7:34 PM CDT [facility] GLUCOSE 85 70 - 99 MG/DL 02/12/2025 7:34 PM CDT [facility] BUN 7 7 - 18 MG/DL 02/12/2025 7:34 PM T [facility] CREATININE S/P/B 0.64 0.55 - 1.02 MG/DL 02/12/2025 7:34 PM CDT [facility] CALCIUM S/P/B 8.7 8.4 - 10.5 MG/DL 02/12/2025 7:34 PM CDT [facility] BILIRUBIN TOTAL S/P/B 2.0(H) 0.2 - 1.0 MG/DL 02/12/2025 7:34 PM T [facility] ALKALINE PHOSPHATASE S/P/B 49 37 - 98 U/L 02/12/2025 7:34 PM T [facility] AST 18 15 - 37 U/L 02/12/2025 7:45 PM CDT [facility] ALT 28 14 - 59 U/L 02/12/2025 7:34 PM CDT [facility] TOTAL PROTEIN S/P/B 7.2 6.4 - 8.2 G/DL 02/12/2025 7:34 PM T [facility] ALBUMIN S/P/B 4.2 3.4 - 5.0 G/DL 02/12/2025 7:34 PM T [facility] ANION GAP 8.8 5 - 15 MMOL/L 02/12/2025 7:34 PM CDT [facility] Comment:REFERENCE RANGE NOT ESTABLISHED OSMOLALITY (CALC) 289 MOSM/KG 025 7:34 PM CDT [facility] Comment:REFERENCE RANGE NOT ESTABLISHED GFR ESTIMATE >90 >90 ML/MIN/1. 73 M2 02/12/2025 7:34 PM T [facility] GFR NOTES GFR REFERENCE S: 02/12/2025 7:34 PM CDT [facility] Comment: THE ESTIMATED GFR IS CALCULATED USING THE 2020 CKD-EPI EQUATION. THE FOLLOWING CATEGORIES FOR GRADING RENAL FUNCTION ARE RECOMMENDED BY THE INTERNATIONAL SOCIETY OF NEPHROLOGY (KDIGO 2012 CLINICAL PRACTICE GUIDELINE). G1,NORMAL OR HIGH: >89 ml/min/1.73 m2 G2,MILDLY DECREASED: 60-89 ml/min/1.73 m2 G3A,MILDLY TO MODERATELY DECREASED: 45-59 ml/min/1.73 m2 G3B,MODERATELY TO SEVERELY DECREASED: 30-44 ml/min/1.73 m2 G4,SEVERELY DECREASED: 15-29 ml/min/1.73 m2 G5,KIDNEY FAILURE: <15 ml/min/1.73 m2 02/12/2025 11:3 7 AM CDT us [facility] Final Resul t [facility] [address] [place] [address], * LIPID PANEL (02/12/2025 11:37 AM CDT) CHOLESTEROL 154 <200 MG/DL 02/12/2025 7:34 PM CDT [facility] TRIGLYCERIDES 39 <150 MG/DL 02/12/2025 7:34 PM CDT [facility] HDL 59 >40 MG/DL 02/12/2025 7:34 PM CDT [facility] LDL-C 87 <100 MG/DL 02/12/2025 7:34 PM CDT [facility] VLDL CALCULATION 8 5 - 28 MG/DL 02/12/2025 7:34 PM CDT [facility] CHOL/HDL RATIO 2.6 0.0 - 4.0 02/12/2025 7:34 PM CDT [facility] LDL/HDL 1.5 0.41 - 2.13 02/12/2025 7:34 PM CDT [facility] NON HDL CHOLESTEROL 95 <140 MG/DL 02/12/2025 7:34 PM CDT [facility] 02/12/2025 11:3 7 AM CDT [facility] Final Resul t Performing Organization Address [facility]/ZIP Co de Phone Number [address] [address], [place] [phone] * (ABNORMAL) DIRECT BILIRUBIN (02/12/2025 11:37 AM CDT) BILIRUBIN DIRECT S/P/B 0.3(H) 0.0 - 0.2 MG/DL 02/13/2025 1:20 PM CDT [facility] 02/12/2025 11:3 7 AM CDT [facility] Final Resul t Performing Organization Address [facility] Co de Phone Number [address] [address], [place] [phone] * (ABNORMAL) CBC W/DIFF AUTOMATED (02/12/2025 11:37 AM CDT) WBC 4.97 4.00 - 10.80 x10'3/uL 02/12/2025 7:42 PM CDT [facility] RBC 4.58 4.10 - 5.40 x10'6/uL 02/12/2025 7:42 PM CDT [facility] HGB 14.1 12.0 - 16.0 G/DL 02/12/2025 7:42 PM CDT [facility] HCT 42.2 36.0 - 47.0 % 02/12/2025 7:42 PM CDT [facility] MCV 92.1 78.0 - 100.0 FL 02/12/2025 7:42 PM CDT [facility] MCH 30.8 27.0 - 31.0 PG 02/12/2025 7:42 PM CDT [facility] MCHC 33.4 33.0 - 36.0 G/DL 02/12/2025 7:42 PM CDT [facility] RDW 11.0(L) 11.5 - 14.5 % 02/12/2025 7:42 PM CDT [facility] PLT 265 150 - 350 x10'3/uL 02/12/2025 7:42 PM CDT [facility] MPV 11.3(H) 7.4 - 10.4 FL 02/12/2025 7:42 PM CDT [facility] DIFFERENTIAL TYPE AUTOMATED DIFFERENTIAL 02/12/2025 7:42 PM CDT [facility] NEUTROPHILS % 62.2 % 02/12/2025 7:42 PM CDT [facility] LYMPHOCYTES % 24.7 % 02/12/2025 7:42 PM CDT [facility] MONOCYTES % 10.3 % 02/12/2025 7:42 PM CDT [facility] EOSINOPHILS % 2.4 % 02/12/2025 7:42 PM CDT [facility] BASOPHILS % 0.2 % 02/12/2025 7:42 PM CDT [facility] IMMATURE GRANS % 0.2 % 02/12/2025 7:42 PM CDT [facility] ABS. NEUTROPHILS 3.09 1.60 - 8.30 x10'3/uL 02/12/2025 7:42 PM CDT [facility] ABS. LYMPHOCYTES 1.23 0.80 - 4.70 x10'3/uL 02/12/2025 7:42 PM CDT [facility] ABS. MONOCYTES 0.51 0.00 - 1.50 x10'3/uL 02/12/2025 7:42 PM CDT [facility] ABS. EOSINOPHILS 0.12 0.00 - 0.40 x10'3/uL 02/12/2025 7:42 PM CDT [facility] ABS. BASOPHILS 0.01 0.00 - 0.20 x10'3/uL 02/12/2025 7:42 PM CDT [facility] ABS. IMMATURE GRANULOCYTES 0.01 0.00 - 0.03 x10'3/uL 02/12/2025 7:42 PM CDT [facility] 02/12/2025 11:3 7 AM CDT [facility] Final Resul t Performing Organization Address City/[facility]/ZIP Co de Phone Number [facility] [address] [place] [address], * STREP A RAPID (02/12/2025) [facility] Signature RAPID STREP TEST NEGATIVE NEGATIVE [facility] Internal Control: VALID VALID [facility] STRUCTURE OF ANTERIOR PORTION OF NECK / Unknown 02/12/2025 [facility] MICROBIOLOGY [facility] Final Result Performing Organization Address City/[facility]/ZIP Co de Phone Number [facility] [address] [place] [address], [place] from Last 3 Months Insurance Care Teams Yeast Stacker Relationship Specialty Start Date End Date Samara Reid APNP [address] [place] [address] [phone] PCP - General NURSE PRACTITIONER 05/12/19
[2025-03-09 13:55] LABS: Beta HCG Quantitative 34272.00 mIU/ML
== END 2025-06-07 23:59 | disposition home or self-care (01) ==
LOC: ANHLAB 11:39
PROVIDERS: PCP Registered Nurse; Visit Provider Obstetrics & Gynecology
DX: N91.2 Amenorrhea, unspecified (principal)
CPT/HCPCS: 36415; 84702

== ENCOUNTER 2025-03-10 15:56 | Emergency (ER) | payer OTHER, SELFPAY ==
--- NOTE | ~2025-03-10 | US_ITS ---
EXAMINATION: US OB <= 14 weeks fetus DATE: 03/10/2025 17:04 CDT INDICATION: Vaginal bleeding with a positive test Serum beta hCG measures >34,000 COMPARISON: 08/27/2024 TECHNIQUE: Real-time transabdominal obstetric ultrasound. FINDINGS: Last menstrual period is given as 01/08/2025 Estimated date of delivery by last menstrual period is 10/15/2025 2 para 1 The uterus measures 6.5 x 7.3 x 9.2 cm. A gestational sac is identified within the uterus. Caudal to the gestational sac is an irregular focus of decreased echogenicity measuring 4.7 x 2.7 x 4 .3 cm, consistent with a perigestational hemorrhage, likely the source of patient's bleeding. This perigestational hemorrhage surrounds gestational sac on 3 sides for which short-term follow-up i s recommended. A pole is identified, with a crown-rump length that measures 1.6 cm, corresponding to an approx imate gestational age of 8 weeks and 0 days. cardiac activity is identified at a rate of 174 bpm. The right ovary measures 3.3 x 2.0 x 3.0cm and contains a corpus luteal cyst. The left ovary measures 2.5 x 1.7 x 1.2 cm. Estimated date of delivery by ultrasound is 10/23/2025 IMPRESSION: Single intrauterine gestation with an approximate gestational age of 8 weeks and 0 days, with c ardiac activity identified. Large perigestational hemorrhage, measuring 4.7 cm in greatest dimension, for which short-term follow -up is recommended. Reviewed, dictated and finalized at location A. IMPRESSION: Single intrauterine gestation with an approximate gestational age of 8 weeks an d 0 days, with cardiac activity identified. Large perigestational hemorrhage, measuring 4.7 cm in greatest dimension, for [facility] short-term follow-up is recommended.
[2025-03-10 16:00] VITALS: BP 144/89; PULSE 83; RESP 16; TEMP 36.4; O2SAT 100
--- NOTE | 2025-03-10 16:10 | ED.PREGNANCY ---
HPI - General Chief complaint: Vaginal Bleeding <Nat Ríos PA-C - Last Filed: 03/11/25 10:02> Stated complaint: Sent by OB-bleeding 8wks preg <BARBIE Resendez Last Filed: 03/11/25 10:02> Time Seen by Provider: 03/10/25 16:57 <Nat Ríos PA-C - Last Filed: 03/11/25 10:02> Focused HPI: 35-year-old female who is , approximately 8 weeks presents to the emergency department for vaginal bleeding that started 30 minutes prior to arrival. Patient states yesterday she is appropriate to her lower back has an suprapubic abdominal cramping earlier today. States she went to the bathroom 30 minutes ago and noticed pink tinge blood in her underwear when she wiped. She contacted her OB GYNs office, Dr. Boyer, and was advised to come to the ED. she notes her LMP was 01/08, however she did have some abnormal bleeding on 02/06-02/15. She had a positive home test on Sunday and had her hCG levels drawn yesterday by her OB to determine how far along she was. States her hCG levels were 34,000 she was told she is likely around 8 weeks . Patient states she put a pain a liner on after she noticed some bleeding and has not had to change it since. She denies dysuria, hematuria, fever, vaginal discharge, concern for STDs. GENERAL: Well-appearing, well-nourished, and in no acute distress. HEAD: Normocephalic, atraumatic. CHEST: Clear to auscultation. ?No respiratory distress. ABD: No rebound, guarding rigidity. No CVA tenderness. HEART: Regular rate and rhythm.? NEURO: ?Alert and oriented x3. Patient screened in triage and initial orders placed.? ?Additional care and disposition to be based upon?diagnostic testing and treatment. <Nat Ríos PA-C - Last Filed: 03/11/25 10:02> Source: patient <BARBIE Castillo Last Filed: 03/10/25 20:28> Mode of arrival: ambulatory <BARBIE Castillo Last Filed: 03/10/25 20:28> Limitations: no limitations <Calderon Allen PA-C - Last Filed: 03/10/25 20:28> History of Present Illness HPI Narrative: Agree with MSE note above. <Calderon Allen PA-C - Last Filed: 03/10/25 20:28> Related Data Home medications: Home Medications ?Medication ?Instructions ?Recorded ?Confirmed ?Last Taken ?Type cetirizine 10 mg tablet (Zyrtec) 10 mg PO DAILY 07/28/21 08/02/21 08/01/21 History famotidine 20 mg tablet (Pepcid) 20 mg PO DAILY 07/28/21 08/02/21 08/02/21 History vit no.95-ferrous 1 tablet PO DAILY 07/28/21 08/02/21 08/02/21 History fumarate 28 mg-folic acid 800 mcg tablet () <Nat Ríos PA-C - Last Filed: 03/11/25 10:02> Allergies/Adverse reactions: Allergies Allergy/AdvReac Type Severity Reaction Status Date / Time adhesive tape Allergy Blister Verified 03/10/25 15:57 <Nat Ríos PA-C - Last Filed: 03/11/25 10:02> Review of Systems Review of Systems: All systems as dictated in HPI <Calderon Allen PA-C - Last Filed: 03/10/25 20:28> PMFSH Family History Family History: Family History Other No pertinent family history <Nat Ríos PA-C - Last Filed: 03/11/25 10:02> Social History Social History: Social History (System 07/21/24 @ 11:00 by Umang Penn) Smoking status: Never smoker Substance use: never Spiritual care concerns: No <Nat Ríos PA-C - Last Filed: 03/11/25 10:02> Exam Narrative: GENERAL: Well-appearing, well-nourished, and in no acute distress. HEAD: Normocephalic, atraumatic. EYES: PERRLA and EOMI. ENT: Nares clear, no rhinorrhea or epistaxis. Mucous membranes moist. Oropharynx without tonsillar hypertrophy exudate or other lesions. NECK: Supple. No adenopathy or masses. CHEST: No respiratory distress. Clear to auscultation. No wheezes rales or rhonchi HEART: Regular rate and rhythm. No murmur heard. Normal peripheral pulses. ABDOMEN: Soft, nontender, nondistended, normal active bowel sounds. MSK: Normal range of motion. No edema. SKIN: Warm, dry, no rash. NEURO: Alert and oriented x4. No focal deficits. PSYCH: Normal mood and affect. 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 Scant blood noted at the cervical os. <Calderon Allen PA-C - Last Filed: 03/10/25 20:28> Course Vital Signs Vital signs: Vital Signs Temperature 97.6 F 03/10/25 16:00 Pulse Rate 83 03/10/25 16:00 Respiratory Rate 16 03/10/25 16:00 Blood Pressure 144/89 H 03/10/25 16:00 Pulse Oximetry 100 03/10/25 16:00 Oxygen Delivery Room Air 03/10/25 16:00 Temperature 97.8 F 03/10/25 19:39 Pulse Rate 76 03/10/25 19:39 Respiratory Rate 16 03/10/25 19:39 Blood Pressure 115/62 03/10/25 19:39 Pulse Oximetry 98 03/10/25 19:39 Oxygen Delivery Room Air 03/10/25 16:00 <Nat Ríos PA-C - Last Filed: 03/11/25 10:02> Vital Signs Temperature 97.6 F 03/10/25 16:00 Pulse Rate 83 03/10/25 16:00 Respiratory Rate 16 03/10/25 16:00 Blood Pressure 144/89 H 03/10/25 16:00 Pulse Oximetry 100 03/10/25 16:00 Oxygen Delivery Room Air 03/10/25 16:00 Temperature 97.8 F 03/10/25 19:39 Pulse Rate 76 03/10/25 19:39 Respiratory Rate 16 03/10/25 19:39 Blood Pressure 115/62 03/10/25 19:39 Pulse Oximetry 98 03/10/25 19:39 Oxygen Delivery Room Air 03/10/25 16:00 <Calderon Allen PA-C - Last Filed: 03/10/25 20:28> MDM - OB/Uterine Contractions MDM Narrative Medical decision making narrative: This is a 35-year-old female who presents to the ED for chief complaint of vaginal bleeding during early . Vitals are normal. Exam remarkable for the above. Pelvic exam notable for mild amount of blood in the vaginal vault, however no pulling or active hemorrhage at this time. Lab work shows normal H&H. CMP unremarkable overall. HCG increasing and at 39,378 today. Urinalysis unremarkable. Rh positive Obstetrical ultrasound: IMPRESSION: Single intrauterine gestation with an approximate gestational age of 8 weeks and 0 days, with cardiac activity identified. Large perigestational hemorrhage, measuring 4.7 cm in greatest dimension, for which short-term follow-up is recommended. Spoke with Dr. Boyer (OB); we discussed the imaging findings as well as the presentation. He feels that the patient is stable follow-up in clinic. No further medical recommendations at this time. Patient feels reassured by the workup and consult with Dr. Boyer. She will follow-up this week. Patient will be discharged in stable condition. Supportive measures discussed and return precautions given. Patient is understanding and agreeable with plan for discharge with Ob follow-up. <Calderon Allen PA-C - Last Filed: 03/10/25 20:28> Lab Data Result diagrams: 03/10/25 17:48 03/10/25 17:48 <aNt Ríos PA-C - Last Filed: 03/11/25 10:02> Labs: Lab Results 03/10/25 03/10/25 Range/Units 17:48 17:49 WBC 8.3 (4.5-10.0) K/mm3 RBC 4.65 (4.2-5.4) M/mm3 Hgb 14.4 (12.0-15.0) g/dL Hct 42.2 (37.0-47.0) % MCV 90.8 (80-100) fl MCH 31.0 (26-34) pg MCHC 34.1 (32-36) g/dl RDW 11.2 L (11.5-14.5) % Plt Count 247 (150-375) k/mm3 MPV 10.8 H (7.4-10.4) fl Immature Gran % (Auto) 0.2 (0-0.5) % Neut % (Auto) 74.2 H (45.5-73.1) % Lymph % (Auto) 16.0 L (18.3-44.2) % Love % (Auto) 7.7 (2.6-8.5) % Eos % (Auto) 1.7 (0-4.4) % Baso % (Auto) 0.2 (0.2-1.2) % Lymph # (Auto) 1.33 (0.9-3.2) K/mm3 Love # (Auto) 0.6 (0.1-0.6) K/mm3 Eos # (Auto) 0.1 (0-0.3) K/mm3 Baso # (Auto) 0.0 (0.0-0.1) K/mm3 Abs Immat Gran (auto) 0.02 (0.00-0.031) K/mm3 Absolute Neuts (auto) 6.2 (1.3-6.7) K/mm3 Absolute Nucleated RBC 0.000 (0.0-0.012) K/mm3 Nucleated RBC % 0.0 (0.0-0.2) % PT 13.6 (11.1-14.7) Seconds INR 1.0 APTT 25.5 (22.3-36.8) Seconds Sodium 138 (137-145) mmol/L Potassium 3.7 (3.4-5.0) mmol/L Chloride 103 (98-107) mmol/L Carbon Dioxide 21 L (22-30) mmol/L Anion Gap 14 H (4-12) mmol/L BUN 12 (7-17) mg/dL Creatinine 0.60 L (0.7-1.0) mg/dL Estim Creat Clear Calc Not Reportable Estimated GFR > 60 (59 - ) Glucose 100 (65-110) mg/dL Calcium 9.3 (8.4-10.2) mg/dL Total Bilirubin 1.3 (0.2-1.3) mg/dL AST 24 (14-36) U/L ALT 22 (6-35) U/L Alkaline Phosphatase 44 (38-126) U/L Total Protein 8.0 (6.3-8.2) g/dL Albumin 5.0 (3.5-5.1) g/dL Beta HCG, Quant 86356.00 mIU/ML Urine Color Yellow (Yellow) Urine Appearance Clear (Clear) Urine pH 6.0 (5.0-9.0) Ur Specific [place] 1.006 (1.001-1.035) Urine Protein Negative (Negative) mg/dL Urine Glucose (UA) Negative (Negative) mg/dL Urine Ketones Trace H (Negative) mg/dL Ur Blood (Man) 1+ H (Negative) Urine Nitrate Negative (Negative) Urine Bilirubin Negative (Negative) Urine Urobilinogen 0.2 (<2.0) mg/dL Leukocyte Esterase Rfl Negative (Negative) SANDHYA/UL Urine RBC 0-2 (0-2) /hpf Urine WBC 0-5 (0-3) /hpf Ur Squamous Epith Cells None seen (Few) /hpf Urine Bacteria None seen /hpf Urine Casts 0-2 Blood Type A Positive Antibody Screen Negative Doses of RhIg Required 0 <Nat Ríos PA-C - Last Filed: 03/11/25 10:02> Lab Results 03/10/25 03/10/25 Range/Units 17:48 17:49 WBC 8.3 (4.5-10.0) K/mm3 RBC 4.65 (4.2-5.4) M/mm3 Hgb 14.4 (12.0-15.0) g/dL Hct 42.2 (37.0-47.0) % MCV 90.8 (80-100) fl MCH 31.0 (26-34) pg MCHC 34.1 (32-36) g/dl RDW 11.2 L (11.5-14.5) % Plt Count 247 (150-375) k/mm3 MPV 10.8 H (7.4-10.4) fl Immature Gran % (Auto) 0.2 (0-0.5) % Neut % (Auto) 74.2 H (45.5-73.1) % Lymph % (Auto) 16.0 L (18.3-44.2) % Love % (Auto) 7.7 (2.6-8.5) % Eos % (Auto) 1.7 (0-4.4) % Baso % (Auto) 0.2 (0.2-1.2) % Lymph # (Auto) 1.33 (0.9-3.2) K/mm3 Love # (Auto) 0.6 (0.1-0.6) K/mm3 Eos # (Auto) 0.1 (0-0.3) K/mm3 Baso # (Auto) 0.0 (0.0-0.1) K/mm3 Abs Immat Gran (auto) 0.02 (0.00-0.031) K/mm3 Absolute Neuts (auto) 6.2 (1.3-6.7) K/mm3 Absolute Nucleated RBC 0.000 (0.0-0.012) K/mm3 Nucleated RBC % 0.0 (0.0-0.2) % PT 13.6 (11.1-14.7) Seconds INR 1.0 APTT 25.5 (22.3-36.8) Seconds Sodium 138 (137-145) mmol/L Potassium 3.7 (3.4-5.0) mmol/L Chloride 103 (98-107) mmol/L Carbon Dioxide 21 L (22-30) mmol/L Anion Gap 14 H (4-12) mmol/L BUN 12 (7-17) mg/dL Creatinine 0.60 L (0.7-1.0) mg/dL Estim Creat Clear Calc Not Reportable Estimated GFR > 60 (59 - ) Glucose 100 (65-110) mg/dL Calcium 9.3 (8.4-10.2) mg/dL Total Bilirubin 1.3 (0.2-1.3) mg/dL AST 24 (14-36) U/L ALT 22 (6-35) U/L Alkaline Phosphatase 44 (38-126) U/L Total Protein 8.0 (6.3-8.2) g/dL Albumin 5.0 (3.5-5.1) g/dL Beta HCG, Quant 55595.00 mIU/ML Urine Color Yellow (Yellow) Urine Appearance Clear (Clear) Urine pH 6.0 (5.0-9.0) Ur Specific [place] 1.006 (1.001-1.035) Urine Protein Negative (Negative) mg/dL Urine Glucose (UA) Negative (Negative) mg/dL Urine Ketones Trace H (Negative) mg/dL Ur Blood (Man) 1+ H (Negative) Urine Nitrate Negative (Negative) Urine Bilirubin Negative (Negative) Urine Urobilinogen 0.2 (<2.0) mg/dL Leukocyte Esterase Rfl Negative (Negative) SANDHYA/UL Urine RBC 0-2 (0-2) /hpf Urine WBC 0-5 (0-3) /hpf Ur Squamous Epith Cells None seen (Few) /hpf Urine Bacteria None seen /hpf Urine Casts 0-2 Blood Type A Positive Antibody Screen Negative Doses of RhIg Required 0 <Calderon Allen PA-C - Last Filed: 03/10/25 20:28> Discharge Plan Discharge Clinical Impression: Subchorionic hemorrhage <BARBIE Resendez Last Filed: 03/11/25 10:02> Patient Disposition: Home <BARBIE Resendez Last Filed: 03/11/25 10:02> Condition: Stable <BARBIE Resendez Last Filed: 03/11/25 10:02> Instructions: Antibiotic Form <BARBIE Resendez Last Filed: 03/11/25 10:02> Additional Instructions: Your exam and imaging today are reassuring overall. This is a subchorionic hemorrhage and should self resolve. measured to be 8 weeks 0 days. Follow-up with Dr. Boyer tomorrow for recheck. If you have any new or worsening symptoms please return to the ER for further evaluation. <Nat Ríos PA-C - Last Filed: 03/11/25 10:02> Patient Language: Tunisian <BARBIE Resendez Last Filed: 03/11/25 10:02> Prescriptions: No Action cetirizine [Zyrtec] 10 mg Tablet 10 mg PO DAILY famotidine [Pepcid] 20 mg Tablet 20 mg PO DAILY PNV cmb#95-ferrous fumarate-FA [] 28 mg iron- 800 mcg Tablet 1 tablet PO DAILY acetaminophen [Mapap (acetaminophen)] 325 mg Tablet 650 mg PO Q6H PRN (Reason: Mild Pain (1-3) Or Headache) Qty: 30 0RF ibuprofen 600 mg Tablet 600 mg PO Q6H PRN (Reason: Cramping) Qty: 30 0RF <Nat Ríos PA-C - Last Filed: 03/11/25 10:02> Follow-up/Referrals: Jeanette,KELL Pascual [Primary Care Provider] - <Nat Ríos PA-C - Last Filed: 03/11/25 10:02> Time of Disposition: 18:52 <Nat Ríos PA-C - Last Filed: 03/11/25 10:02> 18:52 <Calderon Aleln PA-C - Last Filed: 03/10/25 20:28>
--- OUTSIDE RECORDS SUMMARY | 2025-03-10 16:46 | XMS_ITS | Clinical Summary ---
Author Organization [facility] Address [address] [place] [address] Care Team Providers Care Director Of Sleep Name Role Phone Samara Reid THOM Primary Care Provider [phone] Allergies Active Allergy Reactions Criticality Noted Date [...] Date Mild intermittent asthma without complication ([facility]) 05/12/2019 Lactose intolerance 05/12/2019 Seasonal allergies 05/12/2019 Encounters Date Type Department Care Team Description 02/26/2025 Telephone [facility] Internal [address] [address] Samara Reid APNP Lab Results 02/17/2025 MyChart Message Enc [address] [address] Samara Reid APNP Referral to ENT 02/13/[address] [phone] Samara Reid APNP Lab Results 02/12/2025 11:20 AM CDT Office Visit [address] [phone] Samara Reid APNP Physical 02/12/2025 - 02/12/2025 11:59 PM CDT Hospital Encounter [facility] [address] Discharge Disposition: Home or Self Care (Routine Discharge) 02/12/[address] [address] Samara Reid APNP Pre Appt Labs 02/12/2025 Travel 02/04/2025 MyChart Message Enc [address] [address] Samara Reid APNP sore in nose from [...] 11:31 AM CDT Height 167.6 cm (5' 6 ) 02/12/2025 11:3 1 AM CDT Body Mass [...] of 2 - PCV) 05/13/2025 Postponed from 2008 (Patient Refused) Annual Physical 02/12/2026 02/12/2025, 08/0 01/2023, 06/28/2022 COVID-19 Vaccine ( season) 2026 10/31/2021, 03/17/2021, 02/21/2021 Postponed from 07/27/2024 (Patient Refused) DTaP, Tdap and Td Vaccines (7 - Td or Tdap) 07/07/2031 07/07/2021, 12/15/2015, 04/08/2003, Additional history exists Hepatitis B Vaccines Completed 03/09/1999, 10/13/1998, 09/13/1998 PHQ-2 (Physician [place]) Completed 02/12/2025 Hepatitis C Completed 02/13/2025 HPV [...] 3 Months Results * HEPATITIS C AB ([facility] ONLY) (02/13/2025 12:53 PM CDT) HEPATITIS C AB NON-REACTI VE NON-REACT KEIRA 02/13/2025 6:24 PM CDT [facility] Comment: ANTIBODIES TO HCV NOT DETECTED. DOES NOT EXCLUDE THE POSSIBILITY OF EXPOSURE TO HCV. 02/13/2025 12:5 3 PM CDT [facility]OR[facility] Final Resul t [facility] [address] [place] [address], [id number] * CULTURE STREP A (MG/SJS/SMD Only) (02/12/2025 11:53 AM CDT) Pathologist [facility] THROAT CULTURE STREP A ONLY Negative for Group A Streptococci Negative for Group A Streptococci 02/13/2025 6:29 PM CDT [facility] STRUCTURE OF ANTERIOR PORTION OF NECK / Unknown 02/12/2025 11:53 AM CDT Samara TOMAS MICROBIOLOGY - GENERAL ORDE RABLES Final Result Performing Organization Address City/[facility] Co de Phone Number [facility] [address] [place] [address], [place] [phone] * TSH W/REFLEX (02/12/2025 11:37 AM CDT) Pathologist [facility] TSH 2.042 0.358 - 3.740 uIU/ML 02/12/2025 7:34 PM CDT [facility] 02/12/2025 11:3 7 AM CDT [facility]ara [facility]OR[facility] Final Resul t Performing Organization Address [facility] Co de Phone Number [address] [address], [place] [phone] * (ABNORMAL) COMPREHENSIVE METABOLIC PANEL (02/12/2025 11:37 AM CDT) Pathologist [facility] SODIUM S/P/B 141 136 - 145 MMOL/L 02/12/2025 7:34 PM CDT [facility] POTASSIUM S/P/B 4.3 3.5 - 5.1 MMOL/L 02/12/2025 7:34 PM CDT [facility] CHLORIDE S/P/B 104 98 - 107 MMOL/L 02/12/2025 7:34 PM CDT [facility] CO2 28.2 21 - 32 MMOL/L 02/12/2025 7:34 PM CDT [facility] GLUCOSE 85 70 - 99 MG/DL 02/12/2025 7:34 PM CDT [facility] BUN 7 7 - 18 MG/DL 02/12/2025 7:34 PM T [facility] CREATININE S/P/B 0.64 0.55 - 1.02 MG/DL 02/12/2025 7:34 PM CDT [facility] CALCIUM S/P/B 8.7 8.4 - 10.5 MG/DL 02/12/2025 7:34 PM CDT [facility] BILIRUBIN TOTAL S/P/B 2.0(H) 0.2 - 1.0 MG/DL 02/12/2025 7:34 PM T [facility] ALKALINE PHOSPHATASE S/P/B 49 37 - 98 U/L 02/12/2025 7:34 PM T [facility] AST 18 15 - 37 U/L 02/12/2025 7:45 PM CDT [facility] ALT 28 14 - 59 U/L 02/12/2025 7:34 PM CDT [facility] TOTAL PROTEIN S/P/B 7.2 6.4 - 8.2 G/DL 02/12/2025 7:34 PM T [facility] ALBUMIN S/P/B 4.2 3.4 - 5.0 G/DL 02/12/2025 7:34 PM T [facility] ANION GAP 8.8 5 - 15 MMOL/L 02/12/2025 7:34 PM CDT [facility] Comment:REFERENCE RANGE NOT ESTABLISHED OSMOLALITY (CALC) 289 MOSM/KG 025 7:34 PM CDT [facility] Comment:REFERENCE RANGE NOT ESTABLISHED GFR ESTIMATE >90 >90 ML/MIN/1. 73 M2 02/12/2025 7:34 PM T [facility] GFR NOTES GFR REFERENCE S: 02/12/2025 7:34 PM CDT [facility] Comment: THE ESTIMATED GFR IS CALCULATED USING [...] us Samara [facility] Final Resul t [facility] [address] [place] [address], * LIPID PANEL (02/12/2025 11:37 AM CDT) CHOLESTEROL 154 <200 MG/DL 02/12/2025 7:34 PM CDT [facility] TRIGLYCERIDES 39 <150 MG/DL 02/12/2025 7:34 PM CDT [facility] HDL 59 >40 MG/DL 02/12/2025 7:34 PM CDT [facility] LDL-C 87 <100 MG/DL 02/12/2025 7:34 PM CDT [facility] VLDL CALCULATION 8 5 - 28 MG/DL 02/12/2025 7:34 PM CDT [facility] CHOL/HDL RATIO 2.6 0.0 - 4.0 02/12/2025 7:34 PM CDT [facility] LDL/HDL 1.5 0.41 - 2.13 02/12/2025 7:34 PM CDT [facility] NON HDL CHOLESTEROL 95 <140 MG/DL 02/12/2025 7:34 PM CDT [facility] 02/12/2025 11:3 7 AM CDT [facility] Final Resul t Performing Organization Address [facility]/ZIP Co de Phone Number [address] [address], [place] [phone] * (ABNORMAL) DIRECT BILIRUBIN (02/12/2025 11:37 AM CDT) BILIRUBIN DIRECT S/P/B 0.3(H) 0.0 - 0.2 MG/DL 02/13/2025 1:20 PM CDT [facility] 02/12/2025 11:3 7 AM CDT [facility] Final Resul t Performing Organization Address [facility] Co de Phone Number [address] [address], [place] [phone] * (ABNORMAL) CBC W/DIFF AUTOMATED (02/12/2025 11:37 AM CDT) WBC 4.97 4.00 - 10.80 x10'3/uL 02/12/2025 7:42 PM CDT [facility] RBC 4.58 4.10 - 5.40 x10'6/uL 02/12/2025 7:42 PM CDT [facility] HGB 14.1 12.0 - 16.0 G/DL 02/12/2025 7:42 PM CDT [facility] HCT 42.2 36.0 - 47.0 % 02/12/2025 7:42 PM CDT [facility] MCV 92.1 78.0 - 100.0 FL 02/12/2025 7:42 PM CDT [facility] MCH 30.8 27.0 - 31.0 PG 02/12/2025 7:42 PM CDT [facility] MCHC 33.4 33.0 - 36.0 G/DL 02/12/2025 7:42 PM CDT [facility] RDW 11.0(L) 11.5 - 14.5 % 02/12/2025 7:42 PM CDT [facility] PLT 265 150 - 350 x10'3/uL 02/12/2025 7:42 PM CDT [facility] MPV 11.3(H) 7.4 - 10.4 FL 02/12/2025 7:42 PM CDT [facility] DIFFERENTIAL TYPE AUTOMATED DIFFERENTIAL 02/12/2025 7:42 PM CDT [facility] NEUTROPHILS % 62.2 % 02/12/2025 7:42 PM CDT [facility] LYMPH[facility] % 24.7 % 02/12/2025 7:42 PM CDT [facility] MONOCYTES % 10.3 % 02/12/2025 7:42 PM CDT [facility] EOSINOPHILS % 2.4 % 02/12/2025 7:42 PM CDT [facility] BASOPHILS % 0.2 % 02/12/2025 7:42 PM CDT [facility] IMMATURE GRANS % 0.2 % 02/12/2025 7:42 PM CDT [facility] ABS. NEUTROPHILS 3.09 1.60 - 8.30 x10'3/uL 02/12/2025 7:42 PM CDT [facility] ABS. LYMPHOCYTES 1.23 0.80 - 4.70 x10'3/uL 02/12/2025 7:42 PM CDT [facility] ABS. MONOCYTES 0.51 0.00 - 1.50 x10'3/uL 02/12/2025 7:42 PM CDT [facility] ABS. EOSINOPHILS 0.12 0.00 - 0.40 x10'3/uL 02/12/2025 7:42 PM CDT [facility] ABS. BASOPHILS 0.01 0.00 - 0.20 x10'3/uL 02/12/2025 7:42 PM CDT [facility] ABS. IMMATURE GRANULOCYTES 0.01 0.00 - 0.03 x10'3/uL 02/12/2025 7:42 PM CDT [facility] 02/12/2025 11:3 7 AM CDT [facility] Final Resul t Performing Organization Address City/[facility]/ZIP Co de Phone Number [facility] [address] [place] [address], * STREP A RAPID (02/12/2025) [facility] Signature RAPID STREP TEST NEGATIVE NEGATIVE [facility] Internal Control: VALID VALID [facility] STRUCTURE OF ANTERIOR PORTION OF NECK / Unknown 02/12/2025 Samara [facility] MICROBIOLOGY [facility] Final Result Performing Organization Address City/[facility]/ZIP Co de Phone Number [facility] [address] [place] [address], [place] from Last 3 Months Insurance Care Teams Director Of Sleep Relationship Specialty Start Date End Date Samara Reid APNP [address] [place] [address] [phone] PCP - General NURSE PRACTITIONER 05/12/19
--- OUTSIDE RECORDS SUMMARY | 2025-03-10 16:46 | XMS_ITS | Encounter Summary ---
Author Organization [facility] Address [address] [place] [id number] Care Team Providers Care Linderman Machine Operator Name Role Phone Samara Reid Primary Care Provider [phone] Encounter Details Date Type Department Care Team (Late st Contact Info) Description 02/17/2025 [employer] Message Enc [facility] Family & Internal Medicine [facility] [address] [place] [phone] Samara Reid APNP [address] [place] [address] Referral to ENT Social History Tobacco Use [...] on filedocumented in this encounter Care Teams Linderman Machine Operator Relationship Specialty Start Date End Date Samara Reid APNP [address] [place] [address] [phone] PCP - General NURSE PRACTITIONER 05/12/19 documented as of this encounter
--- OUTSIDE RECORDS SUMMARY | 2025-03-10 16:46 | XMS_ITS | Encounter Summary ---
Author Organization [facility] Address [address] [place] [address] Care Team Providers Care Associate Professor Of History Name Role Phone Samara Reid Primary Care Provider [phone] Reason for Visit * Reason Onset Date Comments Fever 05/08/2024 Encounter Details Date Type Department Care Team (Late st Contact Info) Description 05/08/2024 Bitgl[employer]st Message Enc [facility] Family & Internal Medicine [facility] [address] [place] [phone] Samara Reid APNP [address] [place], [place] [phone] Fever after traveling Social History Tobacco Use [...] on filedocumented in this encounter Care Teams Associate Professor Of History Relationship Specialty Start Date End Date Samara Reid APNP [address] [place] [phone] PCP - General NURSE PRACTITIONER 05/12/19 documented as of this encounter
--- OUTSIDE RECORDS SUMMARY | 2025-03-10 16:46 | XMS_ITS | Clinical Summary ---
Author Organization [facility] Address [address] [place] [address] Care Team Providers Care Political Aide Name Role Phone Unavailable Primary Care Provider Unavailabl e Immunizations Immunization Administration Dates Next Due Covid-19, Mrna, Lnp-s, Pf, 30 Mcg/0.3 Ml Dose (P fizer) 10/31/2021 Social History Tobacco Use Types Packs/Day Years Used Date Smoking Tobacco: Never Assessed Comments Unknown Sex and Gender Information Value Date Recorded Sex Assigned at Not on file Legal Sex Female 5:22 PM PANAMA HAT BLOCKER Gender Identity Not on file Sexual Orientation [...]
--- OUTSIDE RECORDS SUMMARY | 2025-03-10 17:37 | XMS_ITS | Clinical Summary ---
Author Organization [facility] Address [address] [place] [address] Care Team Providers Care Library Science Professor Name Role Phone Samara Reid THOM Primary Care Provider [phone]- [phone] Allergies Active Allergy Reactions Criticality Noted Date [...] Date Mild intermittent asthma without complication ([facility]) 05/12/2019 Lactose intolerance 05/12/2019 Seasonal allergies 05/12/2019 Encounters Date Type Department Care Team Description 02/26/2025 Telephone [facility] [address] [address] Samara Reid APNP Lab Results 02/17/2025 MyChart Message Enc [address] [address] Samara Reid APNP Referral to ENT 02/13/[address] [address] Samara Reid APNP Lab Results 02/12/2025 11:20 AM CDT Office Visit [address] [address] Samara Reid APNP Physical 02/12/2025 - 02/12/2025 11:59 PM CDT [facility] [address] Discharge Disposition: Home or Self Care (Routine Discharge) 02/12/[address] [address] Samara Reid APNP Pre Appt Labs 02/12/2025 Travel 02/04/2025 MyChart Message Enc [address] [address] Samara Reid APNP sore in nose from [...] Vaccines Completed 03/09/1999, 10/13/1998, 09/13/1998 PHQ-2 (Physician [place]) Completed 02/12/2025 Hepatitis C Completed 02/13/2025 HPV [...] 3 Months Results * HEPATITIS C AB ([facility] ONLY) (02/13/2025 12:53 PM CDT) HEPATITIS C AB NON-REACTI VE NON-REACT KEIRA 02/13/2025 6:24 PM CDT [facility] Comment: ANTIBODIES TO HCV NOT DETECTED. DOES NOT EXCLUDE THE POSSIBILITY OF EXPOSURE TO HCV. 02/13/2025 12:5 3 PM CDT Samara TOMAS LABORATORY Final Resul t [facility] [address] [place] [address], [id number] * CULTURE STREP A (MG/SJS/SMD Only) (02/12/2025 11:53 AM CDT) Pathologist [facility] THROAT CULTURE STREP A ONLY Negative for Group A Streptococci Negative for Group A Streptococci 02/13/2025 6:29 PM CDT [facility] STRUCTURE OF ANTERIOR PORTION OF NECK / Unknown 02/12/2025 11:53 AM CDT Samara TOMAS MICROBIOLOGY - GENERAL ORDE RABLES Final Result Performing Organization Address City/[facility] Co de Phone Number [facility] [address] [place] [address], [place] [phone] * TSH W/REFLEX (02/12/2025 11:37 AM CDT) Pathologist [facility] TSH 2.042 0.358 - 3.740 uIU/ML 02/12/2025 7:34 PM CDT [facility] 02/12/2025 11:3 7 AM CDT Samara TOMAS LABORATORY Final Resul t Performing Organization Address [facility] Co de Phone Number [address] [address], [place] [phone] * (ABNORMAL) COMPREHENSIVE METABOLIC PANEL (02/12/2025 11:37 AM CDT) Pathologist [facility] SODIUM S/P/B 141 136 - 145 MMOL/L 02/12/2025 7:34 PM CDT [facility] POTASSIUM S/P/B 4.3 3.5 - 5.1 MMOL/L 02/12/2025 7:34 PM CDT [facility] CHLORIDE S/P/B 104 98 - 107 MMOL/L 02/12/2025 7:34 PM CDT [facility] CO2 28.2 21 - 32 MMOL/L 02/12/2025 7:34 PM CDT [facility] GLUCOSE 85 70 - 99 MG/DL 02/12/2025 7:34 PM CDT [facility] BUN 7 7 - 18 MG/DL 02/12/2025 7:34 PM T [facility] CREATININE S/P/B 0.64 0.55 - 1.02 MG/DL 02/12/2025 7:34 PM CDT [facility] CALCIUM S/P/B 8.7 8.4 - 10.5 MG/DL 02/12/2025 7:34 PM CDT [facility] BILIRUBIN TOTAL S/P/B 2.0(H) 0.2 - 1.0 MG/DL 02/12/2025 7:34 PM T [facility] ALKALINE PHOSPHATASE S/P/B 49 37 - 98 U/L 02/12/2025 7:34 PM T [facility] AST 18 15 - 37 U/L 02/12/2025 7:45 PM CDT [facility] ALT 28 14 - 59 U/L 02/12/2025 7:34 PM CDT [facility] TOTAL PROTEIN S/P/B 7.2 6.4 - 8.2 G/DL 02/12/2025 7:34 PM T [facility] ALBUMIN S/P/B 4.2 3.4 - 5.0 G/DL 02/12/2025 7:34 PM T [facility] ANION GAP 8.8 5 - 15 MMOL/L 02/12/2025 7:34 PM CDT [facility] Comment:REFERENCE RANGE NOT ESTABLISHED OSMOLALITY (CALC) 289 MOSM/KG 025 7:34 PM CDT [facility] Comment:REFERENCE RANGE NOT ESTABLISHED GFR ESTIMATE >90 >90 ML/MIN/1. 73 M2 02/12/2025 7:34 PM T [facility] GFR NOTES GFR REFERENCE S: 02/12/2025 7:34 PM CDT [facility] Comment: THE ESTIMATED GFR IS CALCULATED USING [...] us Samara TOMAS LABORATORY Final Resul t [facility] [address] [place] [address], * LIPID PANEL (02/12/2025 11:37 AM CDT) CHOLESTEROL 154 <200 MG/DL 02/12/2025 7:34 PM CDT [facility] TRIGLYCERIDES 39 <150 MG/DL 02/12/2025 7:34 PM CDT [facility] HDL 59 >40 MG/DL 02/12/2025 7:34 PM CDT [facility] LDL-C 87 <100 MG/DL 02/12/2025 7:34 PM CDT [facility] VLDL CALCULATION 8 5 - 28 MG/DL 02/12/2025 7:34 PM CDT [facility] CHOL/HDL RATIO 2.6 0.0 - 4.0 02/12/2025 7:34 PM CDT [facility] LDL/HDL 1.5 0.41 - 2.13 02/12/2025 7:34 PM CDT [facility] NON HDL CHOLESTEROL 95 <140 MG/DL 02/12/2025 7:34 PM CDT [facility] 02/12/2025 11:3 7 AM CDT Samara TOMAS LABORATORY Final Resul t Performing Organization Address [facility]/ZIP Co de Phone Number [address] [address], [place] [phone] * (ABNORMAL) DIRECT BILIRUBIN (02/12/2025 11:37 AM CDT) BILIRUBIN DIRECT S/P/B 0.3(H) 0.0 - 0.2 MG/DL 02/13/2025 1:20 PM CDT [facility] 02/12/2025 11:3 7 AM CDT Samara TOMAS LABORATORY Final Resul t Performing Organization Address [facility] Co de Phone Number [address] [address], [place] [phone] * (ABNORMAL) CBC W/DIFF AUTOMATED (02/12/2025 11:37 AM CDT) WBC 4.97 4.00 - 10.80 x10'3/uL 02/12/2025 7:42 PM CDT [facility] RBC 4.58 4.10 - 5.40 x10'6/uL 02/12/2025 7:42 PM CDT [facility] HGB 14.1 12.0 - 16.0 G/DL 02/12/2025 7:42 PM CDT [facility] HCT 42.2 36.0 - 47.0 % 02/12/2025 7:42 PM CDT [facility] MCV 92.1 78.0 - 100.0 FL 02/12/2025 7:42 PM CDT [facility] MCH 30.8 27.0 - 31.0 PG 02/12/2025 7:42 PM CDT [facility] MCHC 33.4 33.0 - 36.0 G/DL 02/12/2025 7:42 PM CDT [facility] RDW 11.0(L) 11.5 - 14.5 % 02/12/2025 7:42 PM CDT [facility] PLT 265 150 - 350 x10'3/uL 02/12/2025 7:42 PM CDT [facility] MPV 11.3(H) 7.4 - 10.4 FL 02/12/2025 7:42 PM CDT [facility] DIFFERENTIAL TYPE AUTOMATED DIFFERENTIAL 02/12/2025 7:42 PM CDT [facility] NEUTROPHILS % 62.2 % 02/12/2025 7:42 PM CDT [facility] LYMP[facility] % 24.7 % 02/12/2025 7:42 PM CDT [facility] MONOCYTES % 10.3 % 02/12/2025 7:42 PM CDT [facility] EOSINOPHILS % 2.4 % 02/12/2025 7:42 PM CDT [facility] BASOPHILS % 0.2 % 02/12/2025 7:42 PM CDT [facility] IMMATURE GRANS % 0.2 % 02/12/2025 7:42 PM CDT [facility] ABS. NEUTROPHILS 3.09 1.60 - 8.30 x10'3/uL 02/12/2025 7:42 PM CDT [facility] ABS. LYMPHOCYTES 1.23 0.80 - 4.70 x10'3/uL 02/12/2025 7:42 PM CDT [facility] ABS. MONOCYTES 0.51 0.00 - 1.50 x10'3/uL 02/12/2025 7:42 PM CDT [facility] ABS. EOSINOPHILS 0.12 0.00 - 0.40 x10'3/uL 02/12/2025 7:42 PM CDT [facility] ABS. BASOPHILS 0.01 0.00 - 0.20 x10'3/uL 02/12/2025 7:42 PM CDT [facility] ABS. IMMATURE GRANULOCYTES 0.01 0.00 - 0.03 x10'3/uL 02/12/2025 7:42 PM CDT [facility] 02/12/2025 11:3 7 AM CDT Samara TOMAS LABORATORY Final Resul t Performing Organization Address City/[facility]/ZIP Co de Phone Number [facility] [address] [place] [address], * STREP A RAPID (02/12/2025) [facility] Signature RAPID STREP TEST NEGATIVE NEGATIVE [facility] Internal Control: VALID VALID [facility] STRUCTURE OF ANTERIOR PORTION OF NECK / Unknown 02/12/2025 Samara TOMAS [facility]OLOGY [facility] Final Result Performing Organization Address City/[facility]/ZIP Co de Phone Number [facility] [address] [place] [address], [place] from Last 3 Months Insurance Care Teams Library Science Professor Relationship Specialty Start Date End Date Samara Reid APNP [address] [place] [address] [phone] PCP - General NURSE PRACTITIONER 05/12/19
--- OUTSIDE RECORDS SUMMARY | 2025-03-10 17:37 | XMS_ITS | Encounter Summary ---
Author Organization [facility] Address [address] [place] [address] Care Team Providers Care Wet Washer Machine Name Role Phone Samara Reid Primary Care Provider [phone]- [phone] Reason for Visit * Reason Onset Date Comments Fever 05/08/2024 Encounter Details Date Type Department Care Team (Late st Contact Info) Description 05/08/2024 Venuut Message Enc [facility] Family & Internal Medicine [facility] [address] [place] [address] Samara Reid APNP [address] [place], [place] [phone] Fever after traveling Social History Tobacco Use [...] on filedocumented in this encounter Care Teams Wet Washer Machine Relationship Specialty Start Date End Date Samara Reid APNP [address] [place] [address] PCP - General NURSE PRACTITIONER 05/12/19 documented as of this encounter
--- OUTSIDE RECORDS SUMMARY | 2025-03-10 17:37 | XMS_ITS | Clinical Summary ---
Author Organization [facility] Address [address] [place] [address] Care Team Providers Care Recruitment Internship Name Role Phone Unavailable Primary Care Provider Unavailabl e Immunizations Immunization Administration Dates Next Due Covid-19, Mrna, Lnp-s, Pf, 30 Mcg/0.3 Ml Dose (P fizer) 10/31/2021 Social History Tobacco Use Types Packs/Day Years Used Date Smoking Tobacco: Never Assessed Comments Unknown Sex and Gender Information Value Date Recorded Sex Assigned at Not on file Legal Sex Female 5:22 PM DEVELOPMENT OFFICER Gender Identity Not on file Sexual Orientation [...]
--- OUTSIDE RECORDS SUMMARY | 2025-03-10 17:37 | XMS_ITS | Encounter Summary ---
Author Organization [facility] Address [address] [place] [address] Care Team Providers Care Media Professional Name Role Phone Samara Reid Primary Care Provider [phone] Encounter Details Date Type Department Care Team (Late st Contact Info) Description 02/17/2025 Mom Made Foodshart Message Enc [facility] Medical Group Family & Internal Medicine [facility] [address] [place] [phone] Samara Reid APNP [address] [place] [address] Referral to ENT Social History Tobacco Use [...] on filedocumented in this encounter Care Teams Media Professional Relationship Specialty Start Date End Date Samara Reid APNP [address] [place] [address] [phone] PCP - General NURSE PRACTITIONER 05/12/19 documented as of this encounter
[2025-03-10 17:50] VITALS: BP 126/72; PULSE 83; RESP 16; O2SAT 100
[2025-03-10 17:58] LABS: Basophils Percent Auto 0.2 % (0.2-1.2); Eosinophils Absolute Auto 0.1 K/mm3 (0-0.3); Eosinophils Percent Auto 1.7 % (0-4.4); Hematocrit 42.2 % (37.0-47.0); Hemoglobin 14.4 g/dL (12.0-15.0); Immature Granulocyte Absolute 0.02 K/mm3 (0.00-0.031); Immature Granulocyte Percent A 0.2 % (0-0.5); Lymphocytes Absolute Auto 1.33 K/mm3 (0.9-3.2); Mean Corpuscular HGB Conc 34.1 g/dl (32-36); Mean Corpuscular Volume 90.8 fl (80-100); Mean Platelet Volume 10.8 fl (7.4-10.4); Monocytes Absolute Auto 0.6 K/mm3 (0.1-0.6); Monocytes Percent Auto 7.7 % (2.6-8.5); Neutrophils Absolute Auto 6.2 K/mm3 (1.3-6.7); Neutrophils Percent Auto 74.2 % (45.5-73.1); Platelet Count Result 247 k/mm3 (150-375); Red Blood Count 4.65 M/mm3 (4.2-5.4); Red Cell Distribution Width 11.2 % (11.5-14.5); White Blood Count 8.3 K/mm3 (4.5-10.0)
[2025-03-10 18:02] LABS: Add Urine Microscopic? YES; Appearance Urine Clear (Clear); Bacteria Urine None Seen /hpf; Bilirubin Urine Negative (Negative); Blood Urine 1+ (Negative); Color Urine Yellow (Yellow); Glucose Urine UA Negative (Negative); Ketones Urine Trace mg/dL (Negative); Leukocyte Esterase Ur Negative LEU/UL (Negative); Nitrate Urine Negative (Negative); Non Pathogenic Casts 0-2; Protein Urine Negative (Negative); RBC Urine 0-2 /hpf (0-2); Specific Grav Ur 1.006 (1.001-1.035); Squamous Epithelial Cell Urine None Seen /hpf (Few); Urobilinogen Urine 0.2 mg/dL (<2.0); WBC Urine 0-5 /hpf (0-3)
[2025-03-10 18:07] LABS: Alanine Aminotransferase 22 U/L (6-35); Alkaline Phosphatase 44 U/L (38-126); Anion Gap 14 mmol/L (4-12); Aspartate Amino Transferase 24 U/L (14-36); Bilirubin,Total 1.3 mg/dL (0.2-1.3); Blood Urea Nitrogen 12 mg/dL (7-17); Calcium 9.3 mg/dL (8.4-10.2); Carbon Dioxide 21 mmol/L (22-30); Chloride 103 mmol/L (98-107); Estimated Glomerular Filt Rate > 60; Glucose 100 mg/dL (65-110); Potassium 3.7 mmol/L (3.4-5.0); Sodium 138 mmol/L (137-145)
[2025-03-10 18:10] LABS: Prothrombin Time 13.6 Seconds (11.1-14.7)
[2025-03-10 18:11] LABS: Partial Thromboplastin Time 25.5 Seconds (22.3-36.8)
[2025-03-10 19:39] VITALS: BP 115/62; PULSE 76; RESP 16; TEMP 36.6; O2SAT 98
== END 2025-03-10 19:40 | disposition home or self-care (01) ==
PROVIDERS: Physician Assistant; Emergency Provider Physician Assistant; PCP Registered Nurse
DX: O46.8X1 Other antepartum hemorrhage, first trimester (principal); Z3A.08 8 weeks gestation of pregnancy
CPT/HCPCS: 36415; 76801; 80053; 81001; 84702; 85025; 85461; 85610; 85730; 86850; 86900; 86901; 99284

== ENCOUNTER 2025-04-17 01:53 | Day surgery (SDC) | payer OTHER, SELFPAY ==
[2025-04-16 11:30] VITALS: BMI 27.5
--- NOTE | 2025-04-16 11:36 | PC.NURSE ---
Report to the Outpatient Waiting Room, entrance under the green pavilion located off [facility], at time _1130_ on date _[id number]_. Planned Procedure Time: _130pm_.? Time changes happen often and if your time is changed the preop area will call you the afternoon before. - You and your visitor will be asked to self-screen and do not enter if you have any COVID symptoms. Please call surgeon if you need to reschedule. - A mask is optional within the hospital at this time. Patients may have clear liquids (water, carbonated beverages, clear teas, apple juice) until 3 hours prior to surgery with a maximum of 20 ounces. - No food from midnight until time of surgery and no smoking, or chewing tobacco (or any form of nicotine). No chewing gum, candy or mints. Take only the following medications with a SIP of water on the morning of surgery: ___Acetaminophen if needed.____ DO NOT STOP ANY OF YOUR OTHER PRESCRIPTION MEDICATIONS PRIOR TO SURGERY EXCEPT THE FOLLOWING Hold all vitamins and supplements for 3 days per anesthesiologist. Medications to discontinue per physician Date to take last dose Please no make-up, nail welsh, hairspray, perfume, deodorant, or body powder the day of surgery.? No jewelry (including any body piercings) or valuables the day of surgery, leave them at home.? Please take a shower or bath the night before, or the morning of, surgery with an antibacterial soap.? Wear comfortable, loose fitting clothing.? - Jewelry must be removed prior to entering the operating room.? Rings and piercings that are not removed may be cut off. - The hospital will not accept responsibility for valuables.? - Please leave all valuables, including medications, at home the day of surgery. If you are going home after surgery, a licensed cement truck driver must drive you home.? - NO public transportation without another adult if you receive anesthesia. - We recommend that an adult stay with you for 24 hours following discharge. - We also recommend that you do not drive, make important decision, drink alcoholic beverages, or take any drugs that were not prescribed by your health care provider for at least 24 hours after your discharge time. Follow any additional instructions given to you from your surgeon. Telephone instructions given to __Ania___and asked if any additional questions and then verbalized understanding. Patient advised to call surgeon office or pre surgery nurse liaison [phone] if any additional questions.
--- OUTSIDE RECORDS SUMMARY | 2025-04-17 01:56 | XMS_ITS | Clinical Summary ---
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
--- OUTSIDE RECORDS SUMMARY | 2025-04-17 01:56 | XMS_ITS | Clinical Summary ---
Author Organization [facility] Address [address] [facility] [place] [address] Care Team Providers Care Foundation Engineer Name Role Phone Unavailable Primary Care Provider Unavailabl e Source Comments [facility],non-owned Affiliates and Associated Physician Practices is amultiple site organization consisting of ambulatory clinics and hospital sitesin [place], [place]. This disclosure is being madepursuant to the Care Everywhere program and may not contain all information available regarding this patient. Last updated 18.[facility] Allergies Active Allergy Reactions Criticality Noted Date Comments Skin Adhesives Urticaria Medium 04/03/2025 Encounters Date Type Department Care Team Description 04/13/2025 Telephone [facility] [address] [place] [address] [phone] Leonie Ibarra RN Question (Diana called regarding patient reading her ultrasound report and was worried about decreased amniotic fluid mentioned that she says M didn't mention last week. ) 04/07/2025 2:30 PM CDT - 04/07/2025 11:59 PM CDT Hospital Encounter [facility] [address] [place] [address] Sheldon Nath MD Discharge Disposition: Home or Self Care from Last 3 Months Social History Tobacco Use Types Packs/Day Years Used Date Smoking Tobacco: Never Assessed Estimated Date of Delivery Comme nts Yes 10/23/2025 Based on Ultraso und Sex and Gender Information Value Date Recorded Sex Assigned at Not on file Legal Sex Female 2:51 PM BAR MANAGER Gender Identity Not on file Sexual Orientation Not on file Plan of Treatment Upcoming Encounters Date Type Department Care Team (Late st Contact Info) Description 04/22/2025 8:40 AM CDT Appointment [facility] [address] [place] [address] 04/22/2025 9:45 AM CDT Hospital Encounter [facility] [address] [place] [address] Health Maintenance Due Date Last Done Comments PAP SMEAR 1989 DTAP/TDAP/TD VACCINES (1 - Tdap) 2008 HEPATITIS B VACCINE (1 of 3 - 19+ 3-dose series) 2008 COVID-19 VACCINE (2023-2 5 season) 2024 10/31/2021, 03/17/2021, 02/21/2021 DEPRESSION SCREENING 11/26/2024 INFLUENZA VACCINE (Season Ended) 2025 11/07/2021, 08/28/2018 Respiratory Syncytial Virus (RSV) Vaccine Pt: or over 60 yrs (1 - Risk 1-dose series) 08/28/2025 ZOSTER VACCINE (1 of 2) 2039 HEPATITIS C SCREENING Completed 02/13/2025 HIV SCREENING Completed 03/26/2025 HIB VACCINE Aged Out No longer eligi ble based on patient's age to complete this topic HPV VACCINE Aged Out No longer eligi ble based on patient's age to complete this topic MENINGOCOCCAL (Group B) VACCINE SHARED DECISION-MAKING Aged Out No longer eligible based on patient's age to complete this topic MENINGOCOCCAL GROUPS A/C/Y/W VACCINE Aged Out No longer eligible b ased on patient's age to complete this topic PNEUMOCOCCAL VACCINE Aged Out No long er eligible based on patient's age to complete this topic Procedures Procedure Name Priority Date/Time Associated Diagnosis Comments SONOGRAM - COMPLETE Routine 04/07/2025 2:28 PM CDT Encounter for (NT) nuchal translucency scan (HCC) 11 weeks gestation of (HCC) from Last 3 Months Results * SONOGRAM - COMPLETE (04/07/2025 2:28 PM CDT) Linked Results Indication ======== Vaginal bleeding (A+), Subchorionic hemorrhage, AMA 35 years History ====== OB History 2. Para 1 [id number] 1. live 2020. Gest. age 36 w + 3 d. Sex of child: male. Details: Vaginal delivery Lab Tests Test Date Result NIPT Low risk, Male Maternal Assessment = Physical Exam Height 168 cm, 5 ft 6 in. Initial weight 78 kg, 171 lb. Initial BMI 27.60 kg/m Method ====== Transabdominal and transvaginal ultrasound. View: Good view ========= [place] . Number of fetuses: 1 Dating ====== Date Details Gest. age TIAN LMP 01/08/2025 12 w + 5 d 10/15/2025 Stated TIAN 11 w + 6 d 10/21/2025 Previous U/S 03/16/2025 CRL 21.4 mm 11 w + 6 d 10/21/2025 U/S 04/07/2025 based upon CRL 12 w + 2 d 10/18/2025 Assigned dating based on ultrasound (CRL), selected on 04/07/2025 11 w + 6 d 10/21/2025 General Evaluation Cardiac activity present Amniotic fluid: subjectively low Biometry FHR 176 bpm CRL 58.3 mm 12w 2d 75% Hadlock Femur 6.5 mm 12w 0d Hadlock Anatomy The following structures appear normal: Cranium. Arms. Legs. Maternal Structures Right Ovary Normal Left Ovary Normal Impression ========= Single, live, intrauterine at 11w 6d Large (47 x 32 x 29 mm) intrauterine mixed echogenic mass c/w subchorionic hemorrhage CRL is difficult to measure due to lateral hyperflexion of the neck Amniotic fluid volume appears decreased Follow-up ======== Please forward genetic screening results Follow-up ultrasound with MFM consult in 2 weeks Coding ====== Procedures 73378: 1st Trimester 41739: [place] [facility] Anatomical Region Laterality Modality Other 04/07/2025 2:28 PM CDT R Fili Boyer MD MFM ORDERABLES Edited Result - Final from Last 3 Months Insurance
[2025-04-17] MEDS: ACETAMINOPHEN 500 MG TABLET 1000 MG PO (12:30)
[2025-04-17 13:00] VITALS: BP 118/73; PULSE 86; RESP 14; TEMP 37.5; O2SAT 99
--- NOTE | 2025-04-17 13:24 | P.PNAN_ITS ---
Anes - Initial Pre Proc Eval Procedure: Operation Date: 04/17/25 13:30 Proposed Procedures p Suction Dilatation and Curettage - Eddie Boyer MD Date/Time: 04/17/25 13:24 Surgeon: Eddie Boyer MD Pre Op Diagnosis: incomplete AB Patient Data Age: 35 Gender: F Height: 1.68 m Weight: 76.9 kg Last Vital Signs Temp 99.5 F 04/17/25 13:00 Pulse 86 04/17/25 13:00 Resp 14 04/17/25 13:00 BP 118/73 04/17/25 13:00 Pulse Ox 99 04/17/25 13:00 O2 Del Method Room Air 04/17/25 13:00 Allergies Allergy/AdvReac Type Severity Reaction Status Date / Time adhesive tape Allergy Blister Verified 04/17/25 13:08 Home Medications ?Medication ?Instructions ?Recorded ?Confirmed ?Type cetirizine 10 mg tablet (Zyrtec) 10 mg PO DAILY 07/28/21 04/16/25 History famotidine 20 mg tablet (Pepcid) 20 mg PO DAILY 07/28/21 04/16/25 History vit no.95-ferrous 1 tablet PO DAILY 07/28/21 04/16/25 History fumarate 28 mg-folic acid 800 mcg tablet () acetaminophen 325 mg tablet (Mapap 650 mg (2 x 325 mg) PO Q6H PRN 08/04/21 04/16/25 Rx (acetaminophen)) Mild Pain (1-3) Or Headache #30 tabs Patient hx anesthesia problems: post op nausea/vomiting Family hx anesthesia problems: none Results Review: All pre-operative results and documents have been reviewed as part of the pre- operative evaluation. [facility] Past Medical History Medical History Overweight (BMI 25.0-29.9) Anxiety and depression Asthma [place] disease Migraines Family History Family History Other No pertinent family history Social History Social History Smoking status: Never smoker Alcohol intake: current Drinks per week: 1 Substance use: never Living arrangements: with family Spiritual care concerns: No Anes - Eval Final PreProcedure Day of Procedure 04/17/25 13:24 Patient weight: overweight Heart: regular rate and rhythm Lungs: clear to auscultation Airway: Mallampati scale class 1 and other (permanent retainer ) Neurological: alert and oriented Last oral intake: >/= 8 hours ASA classification: II Emergent: no Anesthetic plan: proceed Anesthesia type and monitoring: general GIVS Results Review: All pre-operative results and documents have been reviewed as part of the pre- operative evaluation. Informed Consent: The patient's anesthetic plan and its attendant risks and benefits were discussed with the patient/family/POA. Questions were solicited and answers provided to the satisfaction of the patient/family/POA.
--- NOTE | 2025-04-17 13:35 | PM.IMHP ---
H&P: HPI History of Present Illness Date/Time: 04/17/25 13:35 Chief Complaint: Incomplete miscarriage Narrative: This patient is a 35-year-old female presents with incomplete miscarriage. We have agreed to perform suction D&C. She understands the risks, benefits, and alternatives. She has completed informed consent process is ready to proceed. The patient understands the details of the procedure. The procedure has been explained in detail. She understands the risks. She understands that injuries may occur that result in hospitalization, more surgery, and severe illness. She understands risk of hemorrhage and infection. She denies any chest pain or shortness of breath. She denies any nausea, vomiting, fever, chills. Review of Systems Review of Systems: All systems reviewed & are unremarkable except as noted in HPI and below Constitutional: Constitutional: Denies chills, Denies fatigue, Denies fever(s) and Denies weakness Eyes: Eyes: Denies blurry vision, Denies change in vision, Denies loss of peripheral vision, Denies loss of vision, Denies other visual disturbances and Denies eye pain ENT: Denies vertigo, Denies dizziness, Denies hearing loss, Denies mouth pain, Denies nasal obstruction, Denies neck mass and Denies neck pain Cardiovascular: Cardiovascular: Denies chest pain, Denies diaphoresis, Denies syncope, Denies leg edema and Denies dyspnea Respiratory: Respiratory: Denies chest congestion, Denies cough, Denies hemoptysis, Denies dyspnea and Denies wheezing Gastrointestinal: Gastrointestinal: Denies abdominal pain, Denies constipation, Denies diarrhea, Denies nausea and Denies vomiting Genitourinary: Genitourinary: Denies hematuria, Denies change in libido, Denies nocturia, Denies genital lesions, Denies flank pain and Denies urinary urgency Musculoskeletal: Musculoskeletal: Denies abnormal gait, Denies back pain, Denies myalgias, Denies arthralgias, Denies joint swelling, Denies muscle weakness and Denies neck pain Integumentary/Breasts: Skin/Breast: Denies swelling, Denies breast pain, Denies breast mass, Denies dry skin, Denies nipple discharge, Denies unusual bruising and Denies jaundice Neurologic: Denies Neuro-related abnormal movements, Denies Abnormal speech present, Denies abnormal gait, Denies behavioral changes, Denies confusion, Denies vertigo, Denies dizziness, Denies syncope, Denies loss of vision, Denies memory loss, Denies convulsions and Denies weakness Psychiatric: Psychiatric: Denies abnormal sleep pattern, Denies behavioral changes, Denies change in libido, Denies confusion, Denies depression, Denies anhedonia and Denies memory loss Endocrine: Endocrine: Reports no additional endocrine complaints, Denies change in libido and Denies fatigue Hematologic/Lymphatic: Hematologic/Lymphatic: Reports no additional hematologic/lymphatic complaints Allergic/Immunologic: Allergic/Immunologic: Reports no additional allergic/immunologic complaints and Denies wheezing PMFSH Past Medical History Medical History Overweight (BMI 25.0-29.9) Anxiety and depression Asthma [place] disease Migraines Family History Family History Other No pertinent family history Social History Social History Smoking status: Never smoker Alcohol intake: current Drinks per week: 1 Substance use: never Living arrangements: with family Spiritual care concerns: No Meds Home Medications and Allergies Home Medications ?Medication ?Instructions ?Recorded ?Confirmed ?Type cetirizine 10 mg tablet (Zyrtec) 10 mg PO DAILY 07/28/21 04/16/25 History famotidine 20 mg tablet (Pepcid) 20 mg PO DAILY 07/28/21 04/16/25 History vit no.95-ferrous 1 tablet PO DAILY 07/28/21 04/16/25 History fumarate 28 mg-folic acid 800 mcg tablet () acetaminophen 325 mg tablet (Mapap 650 mg (2 x 325 mg) PO Q6H PRN 08/04/21 04/16/25 Rx (acetaminophen)) Mild Pain (1-3) Or Headache #30 tabs Allergies Allergy/AdvReac Type Severity Reaction Status Date / Time adhesive tape Allergy Blister Verified 04/17/25 13:08 Vital Signs Vital Signs - 24 hr 04/17/25 13:00 Temperature 99.5 F Pulse Rate 86 Respiratory Rate 14 Blood Pressure 118/73 Pulse Oximetry 99 Oxygen Delivery Room Air Exam Const: General: cooperative, healthy appearing, comfortable and no acute distress Orientation/consciousness: oriented to person, oriented to place and oriented to time HENMT: Head: normal to inspection Ears: external ears normal Face/Nose/Sinus: Normal external nose present and normal facial exam Face and sinus: normal facial exam Eyes: General: appearance normal, both eyes and all related structures Neck: Neck: normal visual inspection, trachea midline and supple Resp: Auscultation: clear to auscultation bilaterally, no crackles, no rales, no rhonchi and no wheezes Cardio: Rate: regular rate Rhythm: regular rhythm Heart sounds: no click, no murmurs and no rubs GI: GI Palp: No abdominal tenderness, No Soft to palpation, No Tenderness to palpation present (GI) and No Palpable mass present Auscultation: normal bowel sounds Skin: General skin exam: normal color and no rashes or lesions noted Neuro: General: oriented to person, oriented to place and oriented to time Extrem: General: normal to inspection, no joint enlargement, no clubbing, cyanosis or edema, no pedal edema and no calf tenderness Psych: Appearance: grossly normal Mental Status: mental status grossly normal Speech and movement: Normal speech and movement present Assessment and Plan Assessment and plan (1) Incomplete : Code(s): O03.4 - Incomplete spontaneous without complication Status: Acute Assessment and Plan: This patient is a 35-year-old female presents with incomplete miscarriage. We have agreed to perform suction D&C. She understands the risks, benefits, and alternatives. She has completed informed consent process is ready to proceed.
--- NOTE | 2025-04-17 13:36 | WPDHPUPDATE1 ---
History and Physical Update Update Date/Time: 04/17/25 13:36 History and Physical has been reviewed, including an updated exam of the patient. There are NO changes in the patient's condition. Risks, benefits, and alternatives have been discussed and questions answered. Patient agrees to proceed with procedure.
[2025-04-17] MEDS: LIDOCAINE 1% LOCAL INJ 10 ML VIAL INFILTRATE (13:51)
[2025-04-17 14:05] VITALS: BP 127/59; PULSE 85; RESP 20; O2SAT 96
[2025-04-17] MEDS: LACTATED RINGERS 1,000 ML 30 ML IV CONT (14:05)
--- NOTE | 2025-04-17 14:15 | W.PM.PROC2 ---
Procedure Note - Detailed Date of Procedure 04/17/25 Pre-op Diagnosis incomplete AB Post-op Diagnosis Same Procedure Performed Suction D&C Surgeon Eddie Boyer MD Anesthesia MAC Indications missed Findings normal-appearing vulva vagina and cervix to. Moderate amount of products conception within the uterus. 8 cm uterus Description of Procedure the patient was taken the operating room. She was prepped and draped in dorsal lithotomy position after induction of mac anesthesia. A speculum was placed in the vagina. Cervix grasped with tenaculum. The cervix was dilated to about 1 cm Using Foster dilators. A 8. English curved curette was used to perform suction D&C. The curette was introduced and vacuum was applied. The curette was removed over all surfaces of the intrauterine cavity multiple times. This was done until all the surfaces were clear and had the familiar grainy texture they can be felt through the instrument. A sharp curette was then used to curettage all the surfaces. The suction cup was then reapplied 1 more time to remove any debris. The instruments were removed. The speculum and tenaculum were removed. The patient tolerated the procedure well. She was taken recovery room stable condition. Estimated Blood Loss 50 Drains No Packing No Pathology Yes Complications No immediate complications Condition Stable Disposition PACU
[2025-04-17] MEDS: KETOROLAC 30 MG/ML VIAL (*BKC) IV PUSH (14:20)
[2025-04-17 14:30] VITALS: BP 119/59; PULSE 71; RESP 20; O2SAT 98
[2025-04-17 15:00] VITALS: BP 107/54; PULSE 68; RESP 18
== END 2025-04-17 15:19 | disposition home or self-care (01) ==
PROVIDERS: PCP Registered Nurse; Visit Provider Obstetrics & Gynecology
PROC: (CPT 59812; principal; 2025-04-17 13:30)
DX: O03.4 Incomplete spontaneous abortion without complication (principal); F41.8 Other specified anxiety disorders; J45.909 Unspecified asthma, uncomplicated; E80.4 Gilbert syndrome
CPT/HCPCS: 59812; 88305; A9270; J1100; J1885; J2003; J2250; J2405; J2704; J3010; J7120

== ENCOUNTER 2025-10-06 11:13 | Outpatient (CLI) | payer OTHER, SELFPAY ==
--- OUTSIDE RECORDS SUMMARY | 2025-03-16 11:30 | XMS_ITS ---
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 Allergies & Asthma Social History Sex Assigned At : Social History Observation Description Sex Assigned At Female Encounters Encounter Location Date Provider Diagnosis [facility] [address] [place] [address] 03/16/2025 Ga Bernal Plan Of Treatment No Information Progress Notes * Figueroa BRANHAMFrediOB: 9 (35 yo F)Acc No.[id number]:03/16/2025 Progress Notes Patient: Ania RECIO Provider: Kayley Bernal PA-C :1990 A ge:35 Y S ex:Female Date:03/16/2025 Phone: Address:[address] [place] [address] Pcp:Samara Reid Subjective: * Chief Complaints: * 1 . 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 * Medical History: Objective: * Vitals: Assessment: Plan: * Treatment: * Billing Information: * Visit Code: * Procedure Codes: * Electronic signature of Kannan Bernal PA-C on 10/06/2025 at 11:56 AM APPLE PACKING HEADER Sign off status: Pending * Provider: Kayley Bernal PA-C Date: 0 03/16/2025 Generated for Printi ng/Faxing/eTransmitting on: 1 12/06/2024 11:56 AM APPLE PACKING HEADER
--- NOTE | ~2025-10-06 | US_ITS ---
EXAMINATION: US OB <= 14 weeks fetus DATE: 10/06/2025 12:04 INDICATION: Threatened with vaginal discharge/fluid. TECHNIQUE: Real-time pelvic ultrasound utilizing both a transvaginal and transabdominal probe was performed. The interpreting radiologist was not present for the study. COMPARISON: None FINDINGS: The uterus measures 15.2 x 6.9 x 10.8 cm. There is an intrauterine gestational sac. A yolk sac and pole are identified. The crown rump length measures 5.3 cm, which correlates with an estimated gestational age of 12 weeks and 0 days. heart motion is identified measuring 169 beats per minute (bpm) by M-mode Doppler. The right ovary measures 2.5 x 2.3 x 1.6 cm. The left ovary measures 2.6 x 2.3 x 1.8 cm. 8 mm anechoic likely corpus luteum cyst in the left ovary. Vascular flow identified in both ovaries on color Doppler. There is no free fluid in the pelvis. IMPRESSION: 1. Single living fetus with heart rate of 169 bpm. 2. Gestational age by ultrasound of 12 weeks 0 day(s) +/- 1 week and 1 day with ultrasound estimated date of delivery (TIAN) of 04/20/2026. Reviewed, dictated and finalized at location A. UCT DEVELOPMENT SPECIALIST IMPRESSION: 1. Single living fetus with heart rate of 169 bpm. 2. Gestational age by ultrasound of 12 weeks 0 day(s) +/- 1 week and 1 day wit h ultrasound estimated date of delivery (TIAN) of 04/20/2026.
--- OUTSIDE RECORDS SUMMARY | 2025-10-06 11:56 | XMS_ITS | Encounter Summary ---
Author Organization [facility] Address [address] [place] [address] Care Team Providers Care Tractor Trailer Mechanic Name Role Phone Samara Reid Primary Care Provider [phone] Reason for Visit * Reason Onset Date Comments Fever 05/08/2024 Encounter Details Date Type Department Care Team (Late st Contact Info) Description 05/08/2024 [employer] Message Enc [facility] Family & Internal Medicine [facility] [address] [place] [address] Samara Reid APNP [address] [place] [address] Fever after traveling Social History Tobacco Use [...] on filedocumented in this encounter Care Teams Tractor Trailer Mechanic Relationship Specialty Start Date End Date Samara Reid APNP [address] [place] [address] PCP - General NURSE PRACTITIONER 05/12/19 documented as of this encounter
--- OUTSIDE RECORDS SUMMARY | 2025-10-06 11:56 | XMS_ITS | Clinical Summary ---
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
--- OUTSIDE RECORDS SUMMARY | 2025-10-06 11:56 | XMS_ITS | Clinical Summary ---
Author Organization [facility] Address [address] [place] [address] Care Team Providers Care Orbitread Operator Name Role Phone Unavailable Primary Care Provider Unavailabl e Source Comments [facility],non-owned Affiliates and Associated Physician Practices is amultiple site organization consisting of ambulatory clinics and hospital sitesin [place], [place], [place] and [place]. This disclosure is being madepursuant to the Care Everywhere program and may not contain all information available regarding this patient. 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 Gender Identity Not on file Sexual Orientation Not on file Plan of Treatment Health Maintenance Due Date Last Done Comments DTAP/TDAP/TD VACCINES (1 - Tdap) 2008 HEPATITIS B VACCINE (1 of 3 - 19+ 3-dose series) 2008 PAP SMEAR 2010 HPV VACCINE (1 - 3-dose SCDM series) 2016 DEPRESSION SCREENING 11/26/2024 OB-ONE HOUR GLUCOSE 07/17/2025 OB-TDAP CURRENT 07/24/2025 07/07/2021 COVID-19 VACCINE (4 - 2024-2 6 season) 2025 10/31/2021, 03/17/2021, 02/21/2021 INFLUENZA VACCINE (#1) 2025 , 08/28/2018 OB-RHOGAM INJECTION 07/31/2025 Respiratory Syncytial Virus (RSV) Vaccine Pt: or over 60 yrs (1 - Risk 1-dose series) 08/28/2025 OB-GROUP B STREP SCREEN 09/18/2025 ZOSTER VACCINE (1 of 2) 2039 HEPATITIS [...] on patient's age to complete this topic Insurance SELF PAY NO INSURANCE Member Subscriber Plan / Payer (Ef fective for All Dates) Name:Gene Bolanos Member ID:Not on file Relation to Subscriber:Not on file Name:GENE BOLANOS Subscriber ID:Not on file (Home) Address: [address] [place] [id number] Payer ID:Not on file Group ID:Not on file Type:Self Pay Address: [place], [place]
--- OUTSIDE RECORDS SUMMARY | 2025-10-06 11:56 | XMS_ITS | Encounter Summary ---
Author Organization [facility] Address [address] [place] [address] Care Team Providers Care Bond Runner Name Role Phone Samara Reid Primary Care Provider [phone] Encounter Details Date Type Department Care Team (Late st Contact Info) Description 02/17/2025 [employer] Message Enc [facility] Family & Internal Medicine [facility] [address] [place] [phone] Samara Reid APNP [address] [place], [place] [id number] Referral to ENT Social History Tobacco Use [...] on filedocumented in this encounter Care Teams Bond Runner Relationship Specialty Start Date End Date Samara Reid APNP [address] [place] [id number] PCP - General NURSE PRACTITIONER 05/12/19 documented as of this encounter
--- OUTSIDE RECORDS SUMMARY | 2025-10-06 11:56 | XMS_ITS | Clinical Summary ---
Author Organization [facility] Address [address] [place] [address] Care Team Providers Care Manager Wellness Name Role Phone Samara Reid Primary Care Provider [phone] Allergies Active Allergy Reactions Criticality Noted Date Comments Tape Hives 06/23/2022 Medications cetirizine 10 MG tablet Take 1 tablet (10 mg total) by mouth daily. Active albuterol sulfate HFA (VENTOLIN HFA) 108 (90 Base) MCG/ACT inhalerIndication s:Mild intermittent asthma without complication (HHS/HCC) Inhale 2 puffs into the lungs every 6 (six) hours as needed for Wheezing. 18 g 1 4 Active fluticasone propionate (FLONASE) 50 MCG/ACT nasal sprayIndications: Seasonal allergies 2 sprays by Each Nostril route daily. 18.2 mL 2 4 Active mupirocin (BACTROBAN) 2 % ointment APPLY TO AFFECTED AREA 3 TIMES A DAY FOR 7 DAYS 5 Active hydrocortisone 2.5 % creamIndications: Hemorrhoids, unspecified hemorrhoid type Apply topically 2 (two) times daily. 28 g 5 Active Active Problems Problem Noted Date Diagnosed Date Mild intermittent asthma without complication Lactose intolerance 05/12/2019 Seasonal allergies 05/12/2019 Immunizations Immunization Administration Dates Next Due Dtap [...] Sign Reading Time Taken Comments Blood Pressure 130/70 04/03/2025 2:26 PM CDT Pulse 76 04/03/2025 2:26 PM CDT Temperature 36.2 C (97.2 F) 04/03/2025 11:27 AM CDT Respiratory Rate 16 04/03/2025 2:26 PM CDT Oxygen Saturation 100% 04/03/2025 2:26 PM CDT Inhaled Oxygen Concentration - - Weight 77.1 kg (170 lb) 04/03/2025 11:27 AM CDT Height 167.6 cm (5' 6) 04/03/2025 11:27 AM CDT Body Mass Index 27.44 04/03/2025 11:27 AM CDT Plan of Treatment Health Maintenance Due Date Last Done Comments Pneumococcal Vaccine: Pediatrics (0 to 5 Years) and At-Risk Patients (6 to 49 Years) (1 of 2 - PCV) 2008 HPV Vaccines (1 - 3-dose SCDM series) 2016 COVID-19 Vaccine ( season) 2025 10/31/2021, 03/17/2021, 02/21/2021 Influenza Adult (#1) 2025 11/07/2021, 08/28/20 18 Annual Physical 02/12/2026 02/12/2025, 08/01/2023, 06/28/2022 Cervical Cancer Screening Pap Smear (Age 30 to 64) Every 3 Years 03/16/2028 03/16/2025 Cervical Cancer Screening Pap with HPV Testing (Age 30 to 64) Every 5 Years 03/16/2030 03/16/2025 Cervical Cancer Screening with HPV 03/16/2030 DTaP, Tdap and Td Vaccines (7 - Td or Tdap) 07/07/2031 07/07/2021, 12/15/2015, 04/08/2003, Additional history exists Hepatitis B Vaccines Completed 03/09/1999, 10/13/1998, 09/13/1998 PHQ-2 (Physician [place]) Completed 02/12/2025 Hepatitis C Completed 03/26/2025, 02/13/2025 Hepatitis A Vaccines Aged Out No long er eligible based [...] CDT Need for hepatitis C screening test from Last 3 Months or Most Recently Relevant to Health Maintenance Results * HEPATITIS C AB ([facility] ONLY) (02/13/2025 12:53 PM CDT) HEPATITIS C AB NON-REACTI VE NON-REACT KEIRA 02/13/2025 6:24 PM CDT [facility] Comment: ANTIBODIES TO HCV NOT DETECTED. DOES NOT EXCLUDE THE POSSIBILITY OF EXPOSURE TO HCV. 02/13/2025 12:5 3 PM CDT us [facility] Final Resul t [facility] [address] [place] [address], [id number] from Last 3 Months or Most Recently Relevant to Health Maintenance Insurance Care Teams Manager Wellness Relationship Specialty Start Date End Date Samara Reid APNP [address] [place] [address] PCP - General NURSE PRACTITIONER 05/12/19
--- OUTSIDE RECORDS SUMMARY | 2025-10-06 11:56 | XMS_ITS | Patient Health Record ---
Author Organization [facility] ([address]) Address [address] [place] [address] Care Team Providers Care Doper Operator Name Role Phone Samara Reid Primary Care Provider UnavailGa Hutchins Unavailable [phone] Reason For Referral No Information Social History Sex Assigned At : Social History Observation Description Sex Assigned At Female Plan Of Treatment No Information Insurance Providers Payer Name Payer Address Payer Phone Subscriber Number Group Number Insured Name Patient Relationship to Insured Coverage Start Date Coverage End Date [employer] [address] [address] [place] [phone] [id number] James Bolanos Spouse - patient is the spouse of the insured
--- OUTSIDE RECORDS SUMMARY | 2025-10-06 11:57 | XMS_ITS | Data Portability ---
Author Organization [facility] Address [address] [address] Care Team Providers Care Curing Finisher Name Role Phone HEIDY TURNER Primary Care Provider Assessment Encounter Date Assessment Date Assessment LastModified by Organization Details LastModified Time 06/02/2025 06/02/2025 Greater than 40 minutes was spent in total between discussion with the patient, examination, and coordination of care. [email or web address] Not available 06/04/2025 13:14:05 Plan of Treatment Reminders Order Date Submit Date Provider Last Modified By Organization Details Last Modified Time Details Appointments U/S OB FIRST LOOK 2024 04:30P M ULTRASOUND Not available Not available Not available OB NEW 2024 05:00P M RAN [place] MD Not available Not available Not available Lab HbA1c (hemogl obin A1c), blood 2024 025 [facility] (Lab), [address], [place], [address], 09/29/2025 14:50:54 type + screen, blood 2024 025 [facility] (Lab), [address], [place], [address], 09/29/2025 14:50:53 rubella igg Ab, titer, serum 2024 025 [facility] (Lab), [address], [place], [address], 09/29/2025 14:50:52 CBC w/ auto diff 2024 025 [facility] (Lab), [address] [facility], [place], [address], 09/29/2025 14:50:50 hepatit is C virus Ab, serum 2024 025 [facility] (Lab), [address] [facility], [place], [address], 09/29/2025 14:50:52 HBsAg (hepati tis B surface Ag), serum 2024 025 [facility] (Lab), [address] [facility], [place], [address], 09/29/2025 14:50:51 RPR (rapid plasma reagin) , serum 2024 025 [facility] (Lab), [address] [facility], [place], [address], 09/29/2025 14:50:53 HIV 1+2 AB + HIV 1 p24 Ag, qualita tive immunoa ssay, serum 2024 025 [facility] (Lab), [address] [facility], [place], [address], 09/29/2025 14:50:52 aneuplo idy risk, chromos ome specifi c circula ting cell free (ccf) DNA, materna l serum 2024 025 [facility], [address], [place], [address], 10/05/2025 04:36:59 lupus anticoa gulant, plasma 2024 025 [facility] (Lab), [address] [facility], [place], [address], 06/03/2025 13:05:32 TSH, serum or plasma 2024 025 [facility] (Lab), [address] [facility], [place], [address], 06/03/2025 13:05:31 anticar diolipi n igg+igm Ab, serum 2024 025 [facility] (Lab), [address] [facility], [place], [address], 06/03/2025 13:05:33 CMP, serum or plasma 2024 025 [facility] (Lab), [address] [facility], [place], [address], 06/03/2025 13:05:30 CBC w/ auto diff 2024 025 [facility] (Lab), [address] [facility], [place], [address], 06/03/2025 13:05:31 beta-2 glycopr otein 1 igm Ab, serum 2024 025 [facility] (Lab), [address] [facility], [place], [address], 06/03/2025 13:05:34 beta-2 glycopr otein 1 igg Ab, serum 2024 025 [facility] (Lab), [address] [place], [address], 06/03/2025 13:05:33 Referral None recorde d. Procedures None recorde d. Surgeries None recorde d. Imaging US, obstetr ic, transva ginal 2024 [place], [facility] [address], [address], [place], [address], 09/02/2025 09:41:25 Medication Orders None recorde d. Patient TargetsNo targets recorded. Patient InstructionsNo instructions recorded. Reason for Referral None Reported. Results Created Date Observation Date Name Description Value Unit Range Abnormal Flag Note LastModifiedBy Organization Detail LastModifiedTime 04/03/20 25 04/03/2025 [UNIT Y] ANEUP LOIDY NIPT fraction 7.4% normal Not Available [facility] [address], [place], [address], 04/03/2025 19:51:13 04/03/20 25 04/03/2025 [UNIT Y] ANEUP LOIDY NIPT 22Q11.2 microdeletio n LOW RISK <1 in 10,000 normal Not Available [facility] [address], [place], [address], 04/03/2025 19:51:13 04/03/20 25 04/03/2025 [UNIT Y] ANEUP LOIDY NIPT sex chromosome aneuploidy NOT DETECT ED normal Not Available [facility] [address], [place], [address], 04/03/2025 19:51:13 04/03/20 25 04/03/2025 [UNIT Y] ANEUP LOIDY NIPT monosomy X LOW RISK <1 in 10,000 normal Not Available [facility] [address], [place], [address], 04/03/2025 19:51:13 04/03/20 25 04/03/2025 [UNIT Y] ANEUP LOIDY NIPT trisomy 13 LOW RISK <1 in 10,000 normal Not Available [facility] [address], [place], [address], 04/03/2025 19:51:13 04/03/20 25 04/03/2025 [UNIT Y] ANEUP LOIDY NIPT trisomy 18 LOW RISK <1 in 10,000 normal Not Available [facility] [address], [place], [address], 04/03/2025 19:51:13 04/03/20 25 04/03/2025 [UNIT Y] ANEUP LOIDY NIPT trisomy 21 LOW RISK <1 in 10,000 normal Not Available [facility] [address], [place], [address], 04/03/2025 19:51:13 04/03/20 25 04/03/2025 [UNIT Y] ANEUP LOIDY NIPT sex MALE normal Not Available [facility] [address], [place], [address], 04/03/2025 19:51:13 04/03/20 25 04/03/2025 [UNIT Y] ANEUP LOIDY NIPT gestation SINGLE TON normal Not Available [facility] [address], [place], [address], 04/03/2025 19:51:13 04/03/20 25 04/03/2025 [UNIT Y] ANEUP LOIDY NIPT for detailed report, see pdf See PDF normal Not Available [facility] [address], [place], [address], 04/03/2025 19:51:13 04/06/20 25 04/06/2025 [UNIT Y] YAMILE Mantilla sickle cell disease/beta -thalassemia /hemoglobino pathies carrier screen NEGATI VE normal Not Available [facility] [address], [place], [address], 04/06/2025 22:40:19 04/06/20 25 04/06/2025 [UNIT Y] YAMILE Mantilla alpha-thalas semia carrier screen NEGATI VE normal Not Available [facility] [address], [place], [address], 04/06/2025 22:40:19 04/06/20 25 04/06/2025 [UNIT Y] YAMILE Mantilla cystic fibrosis carrier screen NEGATI VE normal Not Available [facility] [address], [place], [address], 04/06/2025 22:40:19 04/06/20 25 04/06/2025 [UNIT Y] YAMILE Mantilla spinal muscular atrophy carrier screen NEGATI VE 2 SMN1 copies , SNP not presen t normal Not Available [facility] [address], [place], [address], 04/06/2025 22:40:19 04/06/20 25 04/06/2025 [UNIT Y] YAMILE Mantilla for detailed report, see pdf See PDF normal Not Available [facility] [address], [place], [address], 04/06/2025 22:40:19 03/26/20 25 03/26/2025 CBC W/DIF F WBC 9.3 10'3/ uL 3.5-10 .5 Not Available [facility] (Lab) [address], [place], [address], 03/27/2025 14:53:44 03/26/20 25 03/26/2025 CBC W/DIF F RBC 4.36 10'6/ uL (based on docume nted legal sex) 3.80-5 .20 Not Available [facility] (Lab) [address], [place], [address], 03/27/2025 14:53:44 03/26/20 25 03/26/2025 CBC W/DIF F HGB 13.2 g/dL (based on docume nted legal sex) 11.6-1 5.4 Not Available [facility] (Lab) [address], [place], [address], 03/27/2025 14:53:44 03/26/20 25 03/26/2025 CBC W/DIF F HCT 41.7 % (based on docume nted legal sex) 34.0-4 5.0 Not Available [facility] (Lab) [address], [place], [address], 03/27/2025 14:53:44 03/26/20 25 03/26/2025 CBC W/DIF F MCV 95.6 fL 80.0-9 9.0 Not Available [facility] (Lab) [address] [facility], [place], [address], 03/27/2025 14:53:44 03/26/20 25 03/26/2025 CBC W/DIF F MCH 30.3 pg 27.0-3 4.0 Not Available [facility] (Lab) [address] [facility], [place], [address], 03/27/2025 14:53:44 03/26/20 25 03/26/2025 CBC W/DIF F MCHC 31.7 g/dL 32.0-3 5.5 low Not Available [facility] (Lab) [address] [facility], [place], [address], 03/27/2025 14:53:44 03/26/20 25 03/26/2025 CBC W/DIF F RDW 11.4 % 11.0-1 5.0 Not Available [facility] (Lab) [address] [facility], [place], [address], 03/27/2025 14:53:44 03/26/20 25 03/26/2025 CBC W/DIF F plt 254 10'3/ uL 150-40 0 Not Available [facility] (Lab) [address] [facility], [place], [address], 03/27/2025 14:53:44 03/26/20 25 03/26/2025 CBC W/DIF F MPV 12.3 fL 8.8-12 .1 high Not Available [facility] (Lab) [address] [facility], [place], [address], 03/27/2025 14:53:44 03/26/20 25 03/26/2025 CBC W/DIF F neutrophils 78.2 % 34.0-7 3.0 high Not Available [facility] (Lab) [address] [place], [address], 03/27/2025 14:53:44 03/26/20 25 03/26/2025 CBC W/DIF F lymphocytes 11.8 % 15.0-5 0.0 low Not Available [facility] (Lab) [address] [facility], [place], [address], 03/27/2025 14:53:44 03/26/20 25 03/26/2025 CBC W/DIF F monocytes 8.0 % 1.0-15 .0 Not Available [facility] (Lab) [address] [facility], [place], [address], 03/27/2025 14:53:44 03/26/20 25 03/26/2025 CBC W/DIF F eosinophils 1.5 % 0.0-8. 0 Not Available [facility] (Lab) [address] [facility], [place], [address], 03/27/2025 14:53:44 03/26/20 25 03/26/2025 CBC W/DIF F basophils 0.3 % 0.0-2. 0 Not Available [facility] (Lab) [address] [facility], [place], [address], 03/27/2025 14:53:44 03/26/20 25 03/26/2025 CBC W/DIF F immature granulocytes 0.2 % no define d refere nce range Immat ure Granu locyt es (IG) repre sents autom ated enume ratio n of Metam yeloc ytes, Myelo cytes and Promy elocy lukasz when IG is < 5%. Blast s are not inclu ded in IG and repor zayda separ ately if prese nt. Not Available [facility] (Lab) [address] [facility], [place], [address], 03/27/2025 14:53:44 03/26/20 25 03/26/2025 CBC W/DIF F absolute neutrophils 7.3 10'3/ uL 1.5-8. 0 Not Available [facility] (Lab) [address] [facility], [place], [address], 03/27/2025 14:53:44 03/26/20 25 03/26/2025 CBC W/DIF F absolute lymphocytes 1.1 10'3/ uL 1.0-4. 0 Not Available [facility] (Lab) [address] [facility], [place], [address], 03/27/2025 14:53:44 03/26/20 25 03/26/2025 CBC W/DIF F absolute monocytes 0.7 10'3/ uL 0.2-1. 0 Not Available [facility] (Lab) [address] [facility], [place], [address], 03/27/2025 14:53:44 03/26/20 25 03/26/2025 CBC W/DIF F absolute eosinophils 0.1 10'3/ uL 0.0-0. 6 Not Available [facility] (Lab) [address] [facility], [place], [address], 03/27/2025 14:53:44 03/26/20 25 03/26/2025 CBC W/DIF F absolute basophils 0.0 10'3/ uL 0.0-0. 3 Not Available [facility] (Lab) [address] [facility], [place], [address], 03/27/2025 14:53:44 03/26/20 25 03/26/2025 CBC W/DIF F absolute immature granulocytes 0.0 10'3/ uL 0.00-0 .10 : Not [place] or Latin o Refer ence range s for nonbi nary/ inter sex or unspe cifie d gende r patie nts have not been estab lishe d. Pleas e refer to the follo wing table for range s estab lishe d for cisge nder patie nts and evalu ate in the clini german gracie xt of the indiv idual patie nt: https ://la teddy book. nm.or g/gen derx Not Available [facility] (Lab) [address] [facility], [place], [address], 03/27/2025 14:53:44 03/26/20 25 03/26/2025 TYPE/ RH/SC REEN ABO/Rh type A POS Not Available [facility] (Lab) [address], [place], [address], 03/27/2025 14:53:44 03/26/20 25 03/26/2025 TYPE/ RH/SC REEN antibody screen NEG Not Available [facility] (Lab) [address], [place], [address], 03/27/2025 14:53:44 03/26/20 25 03/26/2025 TYPE/ RH/SC REEN exp date 2024 23:59 Not Available [facility] (Lab) [address], [place], [address], 03/27/2025 14:53:44 03/26/20 25 03/26/2025 HEPAT ITIS C ANTIB TIFFANY SCREE N, REFLE X TO CONFI RMATI ON hepatitis C antibody Non-re active non-re active Antib odies to HCV Not Detec zayda, does not exclu de the possi bilit y of expos ure to HCV. : Not [place] or Latin o Not Available [facility] (Lab) [address], [place], [address], 03/27/2025 14:53:45 03/26/20 25 03/26/2025 HIV 1/2 ANTIG EN/AN TIBOD Y, REFLE X CONFI RMATI ON HIV antigen/anti body Nonrea ctive nonrea ctive : Not [place] or [place] o HIV-1 antig en and HIV-1 /HIV- 2 antib odies were not detec zayda. No labor atory evide nce of HIV infec tion. Not Available [facility] (Lab) [address], [place], [address], 03/27/2025 14:53:45 03/26/20 25 03/26/2025 RUBEL LA IGG ANTIB TIFFANY, QUANT rubella antibodies, IgG Reacti ve reacti ve Not Available [facility] (Lab) [address] [facility], [place], [address], 03/27/2025 14:53:45 03/26/20 25 03/26/2025 RUBEL LA IGG ANTIB TIFFANY, QUANT rubella antibodies, IgG quant 20.1 IU/mL >=10 : Not [place] or Latin o Non-r eacti ve (Non- Immun e) <10 IU/mL React alvino (Immu ne) > or = 10 IU/mL Not Available [facility] (Lab) [address] [facility], [place], [address], 03/27/2025 14:53:45 03/26/20 25 03/26/2025 HEMOG LOBIN A1C hemoglobin A1C 5.2 % 4.0-5. 6 : Not [place] or [place] o The Ameri can Di[employer] lukasz Ass[employer] iatio n recom mends that a prima ry goal of thera py brentonul d be a HBA1C of < 7% and that physi cians shoul d reeva luate the treat ment regim en in patie nts with HBA1C value s consi stent ly > 8%. <5.7% Saniya l 5.7 - 6.4% Incre ased risk for diabe lukasz >=6.5 % Diagn ostic of diabe lukasz <7.0% Goal of thera py >8.0% Actio n sugge sted Not Available [facility] (Lab) [address] [facility], [place], [address], 03/27/2025 14:53:46 03/26/20 25 03/26/2025 HEPAT ITIS B SURFA CE ANTIG EN hepatitis B surface antigen Non-re active non-re active This assay was perfo rmed using [employer] ratio n reage nts and test kits. Value s obtai carey with other assay metho ds or kits canno t be used inter varela eably . : Not [place] or Latin o Not Available [facility] (Lab) [address] [facility], [place], [address], 03/27/2025 14:53:46 03/26/20 25 03/26/2025 RPR SCREE N, REFLE X TITER /CONF IRMAT ION RPR qualitative Nonrea ctive nonrea ctive : Not [place] or Latin o Not Available [facility] (Lab) [address] [facility], [place], [address], 03/27/2025 14:53:47 03/26/20 25 03/26/2025 LEAD, BLOOD (ADUL T/PED IATRI C) lead, whole blood <1.0 mcg/d L <3.5 See Note 1 Don sis was perfo rmed by [facility] [employer] ed [employer]asm a Mass Spect romet ry (ICPM S) Note 1 This test was devel oped and its don tical perfo rmanc e jigar cteri stics have been deter mined by [employer]. It has not been clear ed or appro grady by the FDA. This assay has been valid ated pursu ant to the CLIA regul ation s and is used for clini german purpo ses. : Not [place] or Latin o Perfo rming Organ izati on Infor matio n: Site ID: [id number] Name: [employer]-Trevor Henley Addre ss: [id number] [place] [address] Direc tor: Edvin Sosa s Not Available [facility] (Lab) [address] [facility], [place], [address], 03/27/2025 14:53:47 06/02/2006/02/2025 LUPUS ANTIC OAGUL ANT INTER PRETA TION lupus anticoagulan t interpretati on The result s are consis tent with the presen ce of a lupus antico agulan t. It is sugges zayda that testin g be repeat ed at least 12 weeks after an initia l positi ve test to confir m persis tent positi vity. Inter prete d By: Vincent nolasco MD 025 10:43 1. Negat alvino resul ts do not rule out the prese nce of lupus antic oagul ant due to the limit ation of DRVVT and SCT senst iviti es. 2. Posit alvino resul ts may confi rm the prese nce of lupus antic oagul ant but also may occur in cases with certa in inter ferin g subst ances such as antic oagul ant thera py. 3. Clini german histo ry as well as other lab resul ts must be caref ully evalu ated befor e makin g a diagn osis. 4. If the Lupus Evalu ation is negat alvino, and PTT or PT are prolo nged, mixin g studi es shoul d be sough t to inves tigat e facto r defic ienci es or inhib itors . If mixin g studi es are still prolo nged, it may indic ate the prese nce of an inhib itor other than lupus antic oagul ent, or it may sugge st false negat alvino lupus antic oagul ant resul ts. Not Available [facility] (Lab) [address] [facility], [place], [address], 06/03/2025 13:05:29 06/02/20 25 06/02/2025 CMP(C OMPRE HENSI VE METAB OLIC PANEL ) sodium 137 mmol/ L 133-14 6 Not Available [facility] (Lab) [address] [place], [address], 06/03/2025 13:05:30 06/02/20 25 06/02/2025 CMP(C OMPRE HENSI VE METAB OLIC PANEL ) potassium 4.2 mmol/ L 3.5-5. 1 Not Available [facility] (Lab) [address] [place], [address], 06/03/2025 13:05:30 06/02/20 25 06/02/2025 CMP(C OMPRE HENSI VE METAB OLIC PANEL ) chloride 105 mmol/ L 98-107 Not Available [facility] (Lab) [address] [place], [address], 06/03/2025 13:05:30 06/02/20 25 06/02/2025 CMP(C OMPRE HENSI VE METAB OLIC PANEL ) carbon dioxide 25 mmol/ L 21-31 Not Available [facility] (Lab) [address] [facility], [place], [address], 06/03/2025 13:05:30 06/02/20 25 06/02/2025 CMP(C OMPRE HENSI VE METAB OLIC PANEL ) anion gap 7 mmol/ L 4-13 Not Available [facility] (Lab) [address] [facility], [place], [address], 06/03/2025 13:05:30 06/02/20 25 06/02/2025 CMP(C OMPRE HENSI VE METAB OLIC PANEL ) blood urea nitrogen 14 mg/dL 7-25 Not Available [facility] (Lab) [address] [facility], [place], [address], 06/03/2025 13:05:30 06/02/20 25 06/02/2025 CMP(C OMPRE HENSI VE METAB OLIC PANEL ) creatinine 0.67 mg/dL 0.60-1 .30 Not Available [facility] (Lab) [address] [facility], [place], [address], 06/03/2025 13:05:30 06/02/20 25 06/02/2025 CMP(C OMPRE HENSI VE METAB OLIC PANEL ) egfrcr (CKD-epi 2020) >90 mL/mi n/1.7 3_m2 >=60 Not Available [facility] (Lab) [address] [facility], [place], [address], 06/03/2025 13:05:30 06/02/20 25 06/02/2025 CMP(C OMPRE HENSI VE METAB OLIC PANEL ) calcium 9.4 mg/dL 8.3-10 .5 Not Available [facility] (Lab) [address] [facility], [place], [address], 06/03/2025 13:05:30 06/02/20 25 06/02/2025 CMP(C OMPRE HENSI VE METAB OLIC PANEL ) glucose 96 mg/dL 70-100 Not Available [facility] (Lab) [address] [facility], [place], [address], 06/03/2025 13:05:30 06/02/2006/02/2025 CMP(C OMPRE HENSI VE METAB OLIC PANEL ) protein, total 7.2 g/dL 6.4-8. 3 Not Available [facility] (Lab) [address] [facility], [place], [address], 06/03/2025 13:05:30 06/02/2006/02/2025 CMP(C OMPRE HENSI VE METAB OLIC PANEL ) albumin 4.6 g/dL 3.5-5. 0 Not Available [facility] (Lab) [address] [facility], [place], [address], 06/03/2025 13:05:30 06/02/2006/02/2025 CMP(C OMPRE HENSI VE METAB OLIC PANEL ) ALT 18 units /L 9-43 Not Available [facility] (Lab) [address] [facility], [place], [address], 06/03/2025 13:05:30 06/02/2006/02/2025 CMP(C OMPRE HENSI VE METAB OLIC PANEL ) alkaline phosphatase 52 units /L 34-104 Not Available [facility] (Lab) [address] [place], [address], 06/03/2025 13:05:30 06/02/2006/02/2025 CMP(C OMPRE HENSI VE METAB OLIC PANEL ) AST 15 units /L 13-39 Not Available [facility] (Lab) [address] [place], [address], 06/03/2025 13:05:30 06/02/2006/02/2025 CMP(C OMPRE HENSI VE METAB OLIC PANEL ) bilirubin, total 1.6 mg/dL 0.2-1. 2 high Not Available [facility] (Lab) [address] [place], [address], 06/03/2025 13:05:30 06/02/2006/02/2025 TSH, REFLE X FREE T4 TSH 2.33 uIU/m L 0.30-5 .33 Not Available [facility] (Lab) [address], [place], [address], 06/03/2025 13:05:31 06/02/2006/02/2025 CBC W/DIF F WBC 5.1 10'3/ uL 3.5-10 .5 Not Available [facility] (Lab) [address], [place], [address], 06/03/2025 13:05:31 06/02/2006/02/2025 CBC W/DIF F RBC 4.88 10'6/ uL (based on docume nted legal sex) 3.80-5 .20 Not Available [facility] (Lab) [address], [place], [address], 06/03/2025 13:05:31 06/02/2006/02/2025 CBC W/DIF F HGB 14.6 g/dL (based on docume nted legal sex) 11.6-1 5.4 Not Available [facility] (Lab) [address], [place], [address], 06/03/2025 13:05:31 06/02/2006/02/2025 CBC W/DIF F HCT 44.9 % (based on docume nted legal sex) 34.0-4 5.0 Not Available [facility] (Lab) [address], [place], [address], 06/03/2025 13:05:31 06/02/2006/02/2025 CBC W/DIF F MCV 92.0 fL 80.0-9 9.0 Not Available [facility] (Lab) [address], [place], [address], 06/03/2025 13:05:31 06/02/20 25 06/02/2025 CBC W/DIF F MCH 29.9 pg 27.0-3 4.0 Not Available [facility] (Lab) [address], [place], [address], 06/03/2025 13:05:31 06/02/20 25 06/02/2025 CBC W/DIF F MCHC 32.5 g/dL 32.0-3 5.5 Not Available [facility] (Lab) [address], [place], [address], 06/03/2025 13:05:31 06/02/2006/02/2025 CBC W/DIF F RDW 11.5 % 11.0-1 5.0 Not Available [facility] (Lab) [address], [place], [address], 06/03/2025 13:05:31 06/02/2006/02/2025 CBC W/DIF F plt 313 10'3/ uL 150-40 0 Not Available [facility] (Lab) [address], [place], [address], 06/03/2025 13:05:31 06/02/2006/02/2025 CBC W/DIF F MPV 11.6 fL 8.8-12 .1 Not Available [facility] (Lab) [address], [place], [address], 06/03/2025 13:05:31 06/02/2006/02/2025 CBC W/DIF F NRBC's 0.0 % 0.0 Not Available [facility] (Lab) [address] [place], [address], 06/03/2025 13:05:31 06/02/2006/02/2025 CBC W/DIF F absolute NRBCs 0.0 10'3/ uL no refere nce range establ ished Not Available [facility] (Lab) [address], [place], [address], 06/03/2025 13:05:31 06/02/20 25 06/02/2025 CBC W/DIF F neutrophils 62.6 % 34.0-7 3.0 Not Available [facility] (Lab) [address] [facility], [place], [address], 06/03/2025 13:05:31 06/02/20 25 06/02/2025 CBC W/DIF F lymphocytes 23.9 % 15.0-5 0.0 Not Available [facility] (Lab) [address] [facility], [place], [address], 06/03/2025 13:05:31 06/02/20 25 06/02/2025 CBC W/DIF F monocytes 8.7 % 1.0-15 .0 Not Available [facility] (Lab) [address] [place], [address], 06/03/2025 13:05:31 06/02/20 25 06/02/2025 CBC W/DIF F eosinophils 3.8 % 0.0-8. 0 Not Available [facility] (Lab) [address] [place], [address], 06/03/2025 13:05:31 06/02/20 25 06/02/2025 CBC W/DIF F basophils 0.6 % 0.0-2. 0 Not Available [facility] (Lab) [address] [facility], [place], [address], 06/03/2025 13:05:31 06/02/20 25 06/02/2025 CBC W/DIF F immature granulocytes 0.4 % no define d refere nce range Immat ure Granu locyt es (IG) repre sents autom ated enume ratio n of Metam yeloc ytes, Myelo cytes and Promy elocy lukasz when IG is < 5%. Blast s are not inclu ded in IG and repor zayda separ ately if prese nt. Not Available [facility] (Lab) [address] [facility], [place], [address], 06/03/2025 13:05:31 06/02/2006/02/2025 CBC W/DIF F absolute neutrophils 3.2 10'3/ uL 1.5-8. 0 Not Available [facility] (Lab) [address] [facility], [place], [address], 06/03/2025 13:05:31 06/02/2006/02/2025 CBC W/DIF F absolute lymphocytes 1.2 10'3/ uL 1.0-4. 0 Not Available [facility] (Lab) [address] [facility], [place], [address], 06/03/2025 13:05:31 06/02/2006/02/2025 CBC W/DIF F absolute monocytes 0.4 10'3/ uL 0.2-1. 0 Not Available [facility] (Lab) [address] [facility], [place], [address], 06/03/2025 13:05:31 06/02/2006/02/2025 CBC W/DIF F absolute eosinophils 0.2 10'3/ uL 0.0-0. 6 Not Available [facility] (Lab) [address] [facility], [place], [place], [address], 06/03/2025 13:05:31 06/02/2006/02/2025 CBC W/DIF F absolute basophils 0.0 10'3/ uL 0.0-0. 3 Not Available [facility] (Lab) [address], [place], [address], 06/03/2025 13:05:31 06/02/2006/02/2025 CBC W/DIF F absolute immature granulocytes 0.0 10'3/ uL 0.00-0 .10 Refer ence range s for nonbi nary/ inter sex or unspe cifie d gende r patie nts have not been estab lishe d. Pleas e refer to the follo wing table for range s estab lishe d for cisge nder patie nts and evalu ate in the clini german gracie xt of the indiv idual patie nt: https :[email or web address] espinal book. nm.or g/gen derx Not Available [facility] (Lab) [address], [place], [address], 06/03/2025 13:05:31 06/02/20 25 06/02/2025 LUPUS ANTIC OAGUL ANT EVALU ATION lupus anticoagulan t Positi ve negati ve abnormal Not Available [facility] (Lab) [address], [place], [address], 06/03/2025 13:05:32 06/02/2006/02/2025 LUPUS ANTIC OAGUL ANT EVALU ATION prothrombin time (PT) 12.2 secon ds 10.0-1 3.2 Not Available [facility] (Lab) [address], [place], [address], 06/03/2025 13:05:32 06/02/20 25 06/02/2025 LUPUS ANTIC OAGUL ANT EVALU ATION INR 1.0 . 0.9-1. 2 Not Available [facility] (Lab) [address], [place], [address], 06/03/2025 13:05:32 06/02/20 25 06/02/2025 LUPUS ANTIC OAGUL ANT EVALU ATION APTT 38.3 secon ds 24.8-3 8.4 Not Available [facility] (Lab) [address] [place], [address], 06/03/2025 13:05:32 06/02/20 25 06/02/2025 LUPUS ANTIC OAGUL ANT EVALU ATION thrombin time 17.5 secon ds 11.5-1 6.5 high Not Available [facility] (Lab) [address] [place], [address], 06/03/2025 13:05:32 06/02/20 25 06/02/2025 LUPUS ANTIC OAGUL ANT EVALU ATION dilute domenic viper venom time (drvvt) test ratio 1.21 ratio <=1.19 high Not Available [facility] (Lab) [address] [facility], [place], [address], 06/03/2025 13:05:32 06/02/20 25 06/02/2025 LUPUS ANTIC OAGUL ANT EVALU ATION silica clotting time (sct) test ratio 0.96 ratio <=1.16 Not Available [facility] (Lab) [address] [facility], [place], [address], 06/03/2025 13:05:32 06/02/20 25 06/02/2025 CARDI OLIPI N IGG/I GM ANTIB ODIES cardiolipin IgG <1.6 gpl_U /mL 0.0-19 .9 Not Available [facility] (Lab) [address] [place], [address], 06/03/2025 13:05:32 06/02/20 25 06/02/2025 CARDI OLIPI N IGG/I GM ANTIB ODIES cardiolipin IgG, qual Negati ve negati ve Not Available [facility] (Lab) [address] [place], [address], 06/03/2025 13:05:32 06/02/20 25 06/02/2025 CARDI OLIPI N IGG/I GM ANTIB ODIES cardiolipin IgM 1.8 mpl_U /mL 0.0-19 .9 Not Available [facility] (Lab) [address] [place], [address], 06/03/2025 13:05:32 06/02/20 25 06/02/2025 CARDI OLIPI N IGG/I GM ANTIB ODIES cardiolipin IgM, qual Negati ve negati ve Not Available [facility] (Lab) [address] [place], [address], 06/03/2025 13:05:32 06/02/20 25 06/02/2025 BETA- 2-GLY COPRO TEIN1 ANTIB TIFFANY IGG beta-2 glycoprotein I Ab, IgG <1.4 U/mL 0.0-19 .9 Not Available [facility] (Lab) [address] [place], [address], 06/03/2025 13:05:33 06/02/20 25 06/02/2025 BETA- 2-GLY COPRO TEIN1 ANTIB TIFFANY IGG beta-2 glycoprotein I Ab, IgG, qual Negati ve negati ve Not Available [facility] (Lab) [address] [place], [address], 06/03/2025 13:05:33 06/02/2006/02/2025 BETA- 2-GLY COPRO TEIN1 ANTIB TIFFANY IGM beta-2 glycoprotein I Ab, IgM <1.5 U/mL 0.0-19 .9 Not Available [facility] (Lab) [address] [place], [address], 06/03/2025 13:05:34 06/02/2006/02/2025 BETA- 2-GLY COPRO TEIN1 ANTIB TIFFANY IGM beta-2 glycoprotein I Ab, IgM, qual Negati ve negati ve Not Available [facility] (Lab) [address] [place], [address], 06/03/2025 13:05:34 08/12/2008/12/2025 BHCG, QUANT ITATI VE B-HCG 38.5 mIU/m L 0.0-4. 9 high This assay was perfo rmed using [employer] ratio n reage nts and test kits. Value s obtai carey with other assay metho ds or kits canno t be used inter varela eably . Refer ence Range s: Non-p regna nt, preme nopau luanne women : 0.0-4 .9 mIU/m L Postm enopa usal women : 0.0-7 .0 mIU/m L Saniya l Pregn ruth: Gesta chelsy l Age bHCG Conc. - mIU/m L 3 Weeks 5.8 - 71.7 4 Weeks 9.5 - 750 5 Weeks 217-7 138 6 Weeks 158 - 31,79 5 7 Weeks 3,697 - 162,5 63 8 Weeks 32,06 5 - 149,5 71 9 Weeks 63,80 3 - 151,4 10 10 Weeks 46,50 9 - 186,9 77 12 Weeks 27,83 2 - 210,6 12 14 Weeks 13,95 0 - 62,53 0 15 Weeks 12,03 9 - 70,97 1 16 Weeks 9,040 - 56,45 1 17 Weeks 8,175 - 55,86 8 18 Weeks 8,099 - 58,17 6 Not Available [facility] (Lab) [address] [facility], [place], [address], 08/13/2025 02:57:36 08/12/20 25 08/12/2025 PROGE STERO NE progesterone 15.80 NG/mL This assay was perfo rmed using [employer] n reage nts and test kits. Value s obtai carey with other assay metho ds or kits canno t be used inter varela josefa . Femal e Proge stero ne Range s: Folli cular phase 0.06- 0.89 ng/mL Ovula tion phase 0.12- 12.00 ng/mL Lutea l phase 1.83- 23.90 ng/mL Postm enopa usal <0.05 -0.13 ng/mL Healt hy Pregn ant Women 1st Trime ster 11.0- 44.30 2nd Trime ster 25.40 -83.3 0 3rd Trime ster 58.70 -214. 00 Not Available [facility] (Lab) [address] [facility], [place], [address], 08/13/2025 02:57:37 08/12/20 25 08/12/2025 LUPUS ANTIC OAGUL ANT INTER PRETA TION lupus anticoagulan t interpretati on A lupus antico agulan t is not detect ed. Inter prete d By: Vincent nolasco MD 2024 10:38 1. Negat alvino resul ts do not rule out the prese nce of lupus antic oagul ant due to the limit ation of DRVVT and SCT senst iviti es. 2. Posit alvino resul ts may confi rm the prese nce of lupus antic oagul ant but also may occur in cases with certa in inter ferin g subst ances such as antic oagul ant thera py. 3. Clini german histo ry as well as other lab resul ts must be caref ully evalu ated befor e makin g a diagn osis. 4. If the Lupus Evalu ation is negat alvino, and PTT or PT are prolo nged, mixin g studi es shoul d be sough t to inves tigat e facto r defic ienci es or inhib itors . If mixin g studi es are still prolo nged, it may indic ate the prese nce of an inhib itor other than lupus antic oagul ent, or it may sugge st false negat alvino lupus antic oagul ant resul ts. Not Available [facility] (Lab) [address] [facility], [place], [address], 08/13/2025 11:46:33 08/12/20 25 08/12/2025 LUPUS ANTIC OAGUL ANT EVALU ATION lupus anticoagulan t Negati ve negati ve Not Available [facility] (Lab) [address], [place], [address], 08/13/2025 11:46:33 08/12/20 25 08/12/2025 LUPUS ANTIC OAGUL ANT EVALU ATION prothrombin time (PT) 10.9 secon ds 10.0-1 3.2 Not Available [facility] (Lab) [address] [facility], [place], [address], 08/13/2025 11:46:33 08/12/20 25 08/12/2025 LUPUS ANTIC OAGUL ANT EVALU ATION INR 0.9 . 0.9-1. 2 Not Available [facility] (Lab) [address] , [place], [address], 08/13/2025 11:46:33 08/12/20 25 08/12/2025 LUPUS ANTIC OAGUL ANT EVALU ATION APTT 29.8 secon ds 24.8-3 8.4 Not Available [facility] (Lab) [address] [facility], [place], [address], 08/13/2025 11:46:33 08/12/2008/12/2025 LUPUS ANTIC OAGUL ANT EVALU ATION thrombin time 13.4 secon ds 11.5-1 6.5 Not Available [facility] (Lab) [address] [facility], [place], [address], 08/13/2025 11:46:33 08/12/2008/12/2025 LUPUS ANTIC OAGUL ANT EVALU ATION dilute domenic viper venom time (drvvt) test ratio 0.92 ratio <=1.19 Not Available [facility] (Lab) [address] [place], [address], 08/13/2025 11:46:33 08/12/2008/12/2025 LUPUS ANTIC OAGUL ANT EVALU ATION silica clotting time (sct) test ratio 1.05 ratio <=1.16 1. Negat alvino resul ts do not rule out the prese nce of lupus antic oagul ant due to the limit ation of DRVVT and SCT senst iviti es. 2. Posit alvino resul ts may confi rm the prese nce of lupus antic oagul ant but also may occur in cases with certa in inter ferin g subst ances such as antic oagul ant thera py. 3. Clini german histo ry as well as other lab resul ts must be caref ully evalu ated befor e makin g a diagn osis. 4. If the Lupus Evalu ation is negat alvino, and PTT or PT are prolo nged, mixin g studi es shoul d be sough t to inves tigat e facto r defic ienci es or inhib itors . If mixin g studi es are still prolo nged, it may indic ate the prese nce of an inhib itor other than lupus antic oagul ent, or it may sugge st false negat alvino lupus antic oagul ant resul ts. Not Available [facility] (Lab) [address] [facility], [place], [address], 08/13/2025 11:46:33 08/14/20 25 08/14/2025 BHCG, QUANT ITATI VE B-HCG 157.0 mIU/m L 0.0-4. 9 high This assay was perfo rmed using [employer] n reage nts and test kits. Value s obtai carey with other assay metho ds or kits canno t be used inter varela eably . Refer ence Range s: Non-p regna nt, preme nopau luanne women : 0.0-4 .9 mIU/m L Postm enopa usal women : 0.0-7 .0 mIU/m L Saniya l Pregn ruth: Gesta chelsy l Age bHCG Conc. - mIU/m L 3 Weeks 5.8 - 71.7 4 Weeks 9.5 - 750 5 Weeks 217-7 138 6 Weeks 158 - 31,79 5 7 Weeks 3,697 - 162,5 63 8 Weeks 32,06 5 - 149,5 71 9 Weeks 63,80 3 - 151,4 10 10 Weeks 46,50 9 - 186,9 77 12 Weeks 27,83 2 - 210,6 12 14 Weeks 13,95 0 - 62,53 0 15 Weeks 12,03 9 - 70,97 1 16 Weeks 9,040 - 56,45 1 17 Weeks 8,175 - 55,86 8 18 Weeks 8,099 - 58,17 6 Not Available [facility] (Lab) [address] [place], [address], 08/15/2025 02:50:14 09/28/20 25 09/28/2025 CBC W/DIF F WBC 7.4 10'3/ uL 3.5-10 .5 Not Available [facility] (Lab) [address] [facility], [place], [address], 09/29/2025 14:50:50 09/28/20 25 09/28/2025 CBC W/DIF F RBC 4.19 10'6/ uL (based on docume nted legal sex) 3.80-5 .20 Not Available [facility] (Lab) [address], [place], [address], 09/29/2025 14:50:50 09/28/20 25 09/28/2025 CBC W/DIF F HGB 13.7 g/dL (based on docume nted legal sex) 11.6-1 5.4 Not Available [facility] (Lab) [address], [place], [address], 09/29/2025 14:50:50 09/28/20 25 09/28/2025 CBC W/DIF F HCT 39.1 % (based on docume nted legal sex) 34.0-4 5.0 Not Available [facility] (Lab) [address], [place], [address], 09/29/2025 14:50:50 09/28/20 25 09/28/2025 CBC W/DIF F MCV 93.3 fL 80.0-9 9.0 Not Available [facility] (Lab) [address], [place], [address], 09/29/2025 14:50:50 09/28/20 25 09/28/2025 CBC W/DIF F MCH 32.7 pg 27.0-3 4.0 Not Available [facility] (Lab) [address], [place], [address], 09/29/2025 14:50:50 09/28/20 25 09/28/2025 CBC W/DIF F MCHC 35.0 g/dL 32.0-3 5.5 Not Available [facility] (Lab) [address] [place], [address], 09/29/2025 14:50:50 09/28/20 25 09/28/2025 CBC W/DIF F RDW 11.8 % 11.0-1 5.0 Not Available [facility] (Lab) [address] [place], [address], 09/29/2025 14:50:50 09/28/20 25 09/28/2025 CBC W/DIF F plt 275 10'3/ uL 150-40 0 Not Available [facility] (Lab) [address] [facility], [place], [address], 09/29/2025 14:50:50 09/28/20 25 09/28/2025 CBC W/DIF F MPV 12.3 fL 8.8-12 .1 high Not Available [facility] (Lab) [address] [facility], [place], [address], 09/29/2025 14:50:50 09/28/20 25 09/28/2025 CBC W/DIF F NRBC's 0.0 % 0.0 Not Available [facility] (Lab) [address] [facility], [place], [address], 09/29/2025 14:50:50 09/28/20 25 09/28/2025 CBC W/DIF F absolute NRBCs 0.0 10'3/ uL no refere nce range establ ished Not Available [facility] (Lab) [address] [facility], [place], [address], 09/29/2025 14:50:50 09/28/20 25 09/28/2025 CBC W/DIF F neutrophils 77.3 % 34.0-7 3.0 high Not Available [facility] (Lab) [address] [facility], [place], [address], 09/29/2025 14:50:50 09/28/20 25 09/28/2025 CBC W/DIF F lymphocytes 12.7 % 15.0-5 0.0 low Not Available [facility] (Lab) [address] [facility], [place], [address], 09/29/2025 14:50:50 09/28/20 25 09/28/2025 CBC W/DIF F monocytes 6.9 % 1.0-15 .0 Not Available [facility] (Lab) [address] [facility], [place], [address], 09/29/2025 14:50:50 09/28/20 25 09/28/2025 CBC W/DIF F eosinophils 2.4 % 0.0-8. 0 Not Available [facility] (Lab) [address] [facility], [place], [address], 09/29/2025 14:50:50 09/28/20 25 09/28/2025 CBC W/DIF F basophils 0.4 % 0.0-2. 0 Not Available [facility] (Lab) [address] [facility], [place], [address], 09/29/2025 14:50:50 09/28/20 25 09/28/2025 CBC W/DIF F immature granulocytes 0.3 % no define d refere nce range Immat ure Granu locyt es (IG) repre sents autom ated enume ratio n of Metam yeloc ytes, Myelo cytes and Promy elocy lukasz when IG is < 5%. Blast s are not inclu ded in IG and repor zayda separ ately if prese nt. Not Available [facility] (Lab) [address] [facility], [place], [address], 09/29/2025 14:50:50 09/28/20 25 09/28/2025 CBC W/DIF F absolute neutrophils 5.7 10'3/ uL 1.5-8. 0 Not Available [facility] (Lab) [address] [facility], [place], [address], 09/29/2025 14:50:50 09/28/20 25 09/28/2025 CBC W/DIF F absolute lymphocytes 0.9 10'3/ uL 1.0-4. 0 low Not Available [facility] (Lab) [address] [facility], [place], [address], 09/29/2025 14:50:50 09/28/20 25 09/28/2025 CBC W/DIF F absolute monocytes 0.5 10'3/ uL 0.2-1. 0 Not Available [facility] (Lab) [address] [facility], [place], [address], 09/29/2025 14:50:50 09/28/20 25 09/28/2025 CBC W/DIF F absolute eosinophils 0.2 10'3/ uL 0.0-0. 6 Not Available [facility] (Lab) [address] [facility], [place], [address], 09/29/2025 14:50:50 09/28/20 25 09/28/2025 CBC W/DIF F absolute basophils 0.0 10'3/ uL 0.0-0. 3 Not Available [facility] (Lab) [address] [facility], [place], [address], 09/29/2025 14:50:50 09/28/20 25 09/28/2025 CBC W/DIF F absolute immature granulocytes 0.0 10'3/ uL 0.00-0 .10 Refer ence range s for nonbi nary/ inter sex or unspe cifie d gende r patie nts have not been estab lishe d. Pleas e refer to the april wing table for range s estab lishe d for cisge nder patie nts and evalu ate in the clini german gracie xt of the indiv idual patie nt: https ://la and book. nm.or g/gen derx Not Available [facility] (Lab) [address] , [place], [address], 09/29/2025 14:50:50 09/28/20 25 09/28/2025 HEPAT ITIS B SURFA CE ANTIG EN hepatitis B surface antigen Non-re active non-re active The test metho d is elect singh milum inesc ence immun oassa y perfo rmed on the [employer] e801. Value s obtai carey with diffe rent assay metho ds by other labor atori es canno t be used inter varela eably . Not Available [facility] (Lab) [address] [facility], [place], [address], 09/29/2025 14:50:51 09/28/20 25 09/28/2025 HIV 1/2 ANTIG EN/AN TIBOD Y, REFLE X CONFI RMATI ON HIV antigen/anti body Nonrea ctive nonrea ctive HIV-1 antig en and HIV-1 /HIV- 2 antib odies were not detec zayda. No labor atory evide nce of HIV infec tion. Not Available [facility] (Lab) [address] [facility], [place], [address], 09/29/2025 14:50:52 09/28/2009/28/2025 HEPAT ITIS C ANTIB TIFFANY SCREE N, REFLE X TO CONFI RMATI ON hepatitis C antibody Non-re active non-re active Antib odies to HCV Not Detec zayda, does not exclu de the possi bilit y of expos ure to HCV. The test metho d is elect singh milum inesc ence immun oassa y perfo rmed on the [employer] e801. Value s obtai carey with diffe rent assay metho ds by other labor atori es canno t be used inter varela eably . Not Available [facility] (Lab) [address] [facility], [place], [address], 09/29/2025 14:50:52 09/28/20 25 09/28/2025 RUBEL LA IGG ANTIB TIFFANY, QUANT rubella antibodies, IgG Reacti ve reacti ve Not Available [facility] (Lab) [address] [place], [address], 09/29/2025 14:50:52 09/28/20 25 09/28/2025 RUBEL LA IGG ANTIB TIFFANY, QUANT rubella antibodies, IgG quant 16.1 IU/mL >=10 Non-r eacti ve (Non- Immun e) <10 IU/mL React alvino (Immu ne) > or = 10 IU/mL Not Available [facility] (Lab) [address] [place], [address], 09/29/2025 14:50:52 09/28/20 25 09/28/2025 TYPE/ RH/SC REEN ABO/Rh type A POS Not Available [facility] (Lab) [address], [place], [address], 09/29/2025 14:50:53 09/28/20 25 09/28/2025 TYPE/ RH/SC REEN antibody screen NEG Not Available [facility] (Lab) [address], [place], [address], 09/29/2025 14:50:53 09/28/20 25 09/28/2025 TYPE/ RH/SC REEN exp date 2024 23:59 Not Available [facility] (Lab) [address], [place], [address], 09/29/2025 14:50:53 09/28/20 25 09/28/2025 RPR SCREE N, REFLE X TITER /CONF IRMAT ION RPR qualitative Nonrea ctive nonrea ctive Not Available [facility] (Lab) [address] [facility], [place], [address], 09/29/2025 14:50:53 09/28/20 25 09/28/2025 HEMOG LOBIN A1C hemoglobin A1C 5.0 % 4.0-5. 6 The Ameri can Diabe lukasz [employer] iatio n recom mends that a prima ry goal of thera py brentonul d be a HBA1C of < 7% and that physi cians shoul d reeva luate the treat ment regim en in patie nts with HBA1C value s consi stent ly > 8%. <5.7% Saniya l 5.7 - 6.4% Incre ased risk for diabe lukasz >=6.5 % Diagn ostic of diabe lukasz <7.0% Goal of thera py >8.0% Actio n sugge sted Not Available [facility] (Lab) [address], [place], [address], 09/29/2025 14:50:54 03/26/20 25 03/26/2025 US, obste tric, limit ed No observ ation record ed. [email or web address] [facility] [address], [place], [address], 03/26/2025 16:51:25 03/26/20 25 03/26/2025 US, obste tric, limit ed No observ ation record ed. [email or web address] [address], [place], [address], 03/26/2025 22:16:58 04/07/20 25 04/07/2025 US, obste tric, follo w-up No observ ation record ed. [email or web address] [facility] [address] [place] [address], [id number], 04/08/2025 06:40:35 04/08/20 25 04/07/2025 US, obste tric, follo w-up No observ ation record ed. [email or web address] [facility] [address] [place] [address], [address], 04/09/2025 13:29:45 04/08/20 25 04/07/2025 US, obste tric, follo w-up No observ ation record ed. [facility] [address] [place] [address], [address], 04/16/2025 13:38:08 04/08/20 25 04/07/2025 US, obste tric, follo w-up No observ ation record ed. [email or web address] [facility] [address] [place] [address], [address], 04/09/2025 13:30:13 04/15/20 25 04/16/2025 US, obste tric, 1st trime ster No observ ation record ed. [email or web address] [facility] [address], [place], [address], 04/16/2025 11:31:06 04/15/2004/15/2025 US, obste tric, 1st trime ster No observ ation record ed. [email or web address] [address], [place], [address], 04/16/2025 22:18:22 08/31/2008/31/2025 US, obste tric, trans vagin al No observ ation record ed. [email or web address] [facility] [address], [place], [address], 08/31/2025 18:06:34 08/31/2008/31/2025 US, obste tric, trans vagin al No observ ation record ed. MAURICIO [address], [place], [address], 09/04/2025 16:36:04 09/15/2009/15/2025 US, obste tric, 1st trime ster No observ ation record ed. MAURICIO [address]ly [address], [place], [address], 09/18/2025 16:48:07 Result Notes None recorded. Problems Name Problem SNOMED Code Status Onset Date Resolution Date Notes Provider Name and Address Organization Details Recorded Time Pregnanc y 80125349 Completed 202404/15/2025 Ruthie mota, [facility] 5 19:50:09 Subchori onic hematoma 107277436 Completed 2024 Heavy bleeding several days - Referral faxed to [facility] 03/26/25 Schedule d 04/08/25 230 [facility] us Ruthie mota [facility] 19:53:15 Problem Notes None recorded. Procedures Surgical History Date Name Laterality Status Provider Name and Address Organization Details Recorded Time 5 SUCTION DILATION & CURETTAGE (SURG) completed Ruthie James [facility] 04/17/2025 16:35:07 Date of Last Pap Smear completed Mariza Son [facility] 03/16/2025 16:21:41 Imaging Results None recorded. Procedure Notes None recorded. Medical Equipment None Reported. Allergies Allergen ID Allergen Name Allergen Category Reaction Reaction Severity Criticality Documentation Date Start Date Code Code System Note Provider Name and Address Organization Details Recorded Time 42097 Tape Adherent medicatio n hives moderate Not available 03/16/[address] [facility] 16:21:25 Medications Name Sig Start Date Stop Date Status Note LastModified by Organization Details LastModified Time benzonatate 200 mg capsule TAKE 1 CAPSULE BY MOUTH THREE TIMES A DAY FOR 10 DAYS 03/16 completed Not Available Not Available Not Available prednisone 20 mg tablet TAKE 2 TABLETS BY MOUTH EVERY DAY FOR 5 DAYS 03/16 completed Not Available Not Available Not Available Zyrtec 10 mg tablet active Not Available Not Available No t Available benzonatate 100 mg capsule TAKE 1 CAPSULE BY MOUTH THREE TIMES A DAY FOR 10 DAYS 03/16 completed Not Available Not Available Not Available Baby Aspirin 81 mg chewable tablet Chew 1 tablet every day by oral route. active Not Available Not Available No t Available mupirocin 2 % topical ointment APPLY TO AFFECTED AREA 3 TIMES A DAY FOR 7 DAYS 09/15 completed Not Available Not Available Not Available Pepcid 20 mg tablet Take 1 tablet twice a day by oral route. active Not Available Not Available No t Available albuterol sulfate HFA 90 mcg/actuati on aerosol inhaler INHALE 1 TO 2 PUFFS BY MOUTH EVERY 4 TO 6 HOURS NEEDED FOR WHEEZING FOR 10 DAYS active Not Available Not Available No t Available cefdinir 300 mg capsule TAKE 1 CAPSULE BY MOUTH EVERY 12 HOURS FOR 10 DAYS 03/16 completed Not Available Not Available Not Available fluticasone propionate 50 mcg/actuati on nasal spray,suspe nsion USE 2 SPRAYS INTRANASA LLY 1 TIME PER DAY FOR 5 DAYS 03/16 completed Not Available Not Available Not Available Colace 50 mg capsule Take 1 capsule every day by oral route. active Not Available Not Available No t Available enoxaparin 40 mg/0.4 mL subcutaneou s syringe INJECT 0.4 ML EVERY DAY BY SUBCUTANE OUS ROUTE FOR 30 DAYS. active Not Available Not Available No t Available cyclobenzap rine 5 mg tablet Take 1 tablet 3 times a day by oral route as needed. 2024 active Not Available Not Available Not Avai lable choline active Not Available Not Avail able Not Available Vitamins 03/16 completed Not Available Not Available Not Available Vitamin D3 active Not Available Not Av ailable Not Available Zyrtec 04/23 completed Not Available Not Available Not Available NAC 600 mg capsule Take by oral route. 09/15 completed Not Available Not Available Not Available Probiotic active Not Available Not Emperatriz ilable Not Available + DHA active Not Available Not Available Not Available ALA 600 mg-B7 450 mcg-argin 660 mg-resver-q uerc-stilb oral combo pack Take by oral route. 09/15 completed Not Available Not Available Not Available Vitals Date Recorded Body height Body mass index (BMI) Body weight Provider Name and Address Organization Details Last Updated DateTime 04/23/2025 167.64 cm 27.1 kg/m2 18619.52 g Mariza Cline [facility] 04/23/2025 16:05:23 Date Recorded Body height Body mass index (BMI) Body weight Systolic And Diastolic Provider Name and Address Organization Details Last Updated DateTime 06/02/2025 167.64 cm 27.9 kg/m2 20689.48 g 122/80 mm[Hg] MINDA Kirby [facility] 06/02/2025 14:27:03 Date Recorded Body height Body mass index (BMI) Body weight Systolic And Diastolic Provider Name and Address Organization Details Last Updated DateTime 09/15/2025 167.64 cm 28.4 kg/m2 17516.26 g 129/71 mm[Hg] Elba Soares [facility] 09/15/2025 17:10:33 Social History Question Answer Notes LastModified by Organizat ion Details LastModified Time Tobacco Smoking Status Never Smoker Ruthie James [facility], [facility] 04/15/2025 19:53:50 Do You Have An Advance Directive? No Information n ot available 03/16/2025 If You Are , What Was Your Level Of Alcohol Consumption Prior To ? Occasional [email or web address] Information not available 04/15/2025 How Many Years Have You Consumed Alcohol? 15 Information not available 03/16/2025 Are You Blind Or Do You Have Difficulty Seeing? No Information n ot available 03/16/2025 What Is Your Level Of Caffeine Consumption? None [email or web address] Information not available 09/15/2025 How Much Tobacco Do You Chew? None Information not available 03/16/2025 In The 14 Days Before Symptom Onset, Have You Had Close Contact With A Laboratory-confirm ed COVID-19 While That Case Was Ill? No Information n ot available 03/16/2025 In The 14 Days Before Symptom Onset, Have You Had Close Contact With A Person Who Is Under Investigation For COVID-19 While That Person Was Ill? No Information not available 03/16/2025 Have You Been To An Area Known To Be High Risk For COVID-19? No Information not available 03/16/2025 Are You Deaf Or Do You Have Serious Difficulty Hearing? No Information not available 03/16/2025 What Type Of Diet Are You Following? REGULAR Information n ot available 03/16/2025 What Is The Highest Grade Or Level Of School You Have Completed Or The Highest Degree You Have Received? [id number] Information not available 03/16/2025 Are There Any Guns Present In Your Home? Yes Information not available 03/16/2025 Do You Use Protection During Sex? No Information not available 03/16/2025 Do You Use Your Seat Belt Or Car Seat Routinely? Yes Information not available 03/16/2025 Are You Sexually Active? Yes [email or web address] Information not available 09/15/2025 Do You Have Smoke And Carbon Monoxide Detectors In Your Home? Yes Information not available 03/16/2025 At What Age Did You Start Smoking Tobacco? 0 Information not available 03/16/2025 How Much Tobacco Do You Smoke? No Information not available 03/16/2025 Do You Use Sunscreen Routinely? Yes Information not available 03/16/2025 How Many Years Have You Smoked Tobacco? 0 Information not available 03/16/2025 Have You Used IV Drugs? No Information not available 03/16/2025 Do You Have Difficulty Walking Or Climbing Stairs? No [email or web address] Information not available 04/15/2025 Sex: Unknown Functional Status Question Answer Note LastModified by Organizat ion Details LastModified Time Do you use any illicit or recreational drugs? No Information not available 03/16/2025 What is your level of alcohol consumption? None [email or web address] Information not available 04/15/2025 Are you currently employed? Yes [email or web address] Information not available 09/15/2025 Are you able to walk independently without assistance or assistive devices? [email or web address] Information not available 03/16/2025 Are you able to care for yourself independently? 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 No Information not available 04/15/2025 What is your exercise level? Moderate Information not available 03/16/2025 Mental Status Question Answer Note LastModified by Organization D etails LastModified Time Do you feel stressed (tense, restless, nervous, or anxious, or unable to sleep at night)? [id number] Information not available 03/16/2025 Family History Relationship Description Onset Age of this Age Resolved Age Notes LastModified by Organization Details LastModified Time Paternal Grandmother Heart disease Not available 2024 16:21:30 Paternal Grandmother Diabetes mellitus Not available 2024 16:21:30 Paternal Grandmother Kidney disease Not available 2024 16:21:30 Maternal Grandmother Cerebrovascu lar accident Not available 16:21:30 Maternal Grandmother Diabetes mellitus Not available 2024 16:21:30 Medical History Condition Response Allergies (Food, seasonal, environmental ) Y Other N Drug/Latex Allergies/Reactions N Blood Transfusion N Breast Cancer N Dermatologic Disorders N Lung Disease N Defects or Inherited Disease N Breast Problem N Gestational Diabetes N Hematologic disorders N Anesthesia Complications N History of STI N Deep Vein Thrombosis N Polycystic ovary syndrome N Anxiety Disorder N Autoimmune disease N Arthritis N Polyps N Infertility N Acid Reflux (GERD) Y History of abnormal pap N Cancer N Varicosities N Stroke N Neurologic/Epilepsy N Endometriosis N High Cholesterol N Fibromyalgia N Headaches N Kidney Disease N Heart Problems N Thyroid Problems N Kidney or Bladder Problems N GI Problems N Eating Disorder N Anemia N Art (IVF or FET) N Psychiatric Illness N Ovarian Cancer N Diabetes N Pulmonary (TB, Asthma) N Hepatitis/Liver Disease N No Past Medical History Y Eczema N Urinary Tract Infection N Abuse/Domestic Violence N Asthma N Trauma/Violence N Depression/ depression N Heart Disease N Pre-Eclampsia N Hypertension N Osteoporosis N Thrombophilias N Gynecological History Statement/Question Response Date of Last Mammogram Flow Heavy Date of LMP 07/16/2025 N Was last menstrual period normal Y STIs/STDs N Date of Last Colonoscopy Desired Control Method Abnormal Pap N On BCP's at Conception? N HPV Vaccine N Duration of Flow (days) 5 Current Control Method Age at First Child 30 Are cycles usually normal Y Frequency of Cycle (Q days) 29 Sexually Active? Y Menses Monthly Y Date of DEXA bone scan Age of first menstrual cycle 13 Date of Last Pap Smear 12/15/2020 Sexual Problems? N LMP Definite N Obstetrics History GPAL:G 2 P 0 1 1 1 Type Value Spontaneous 1 Premature 1 Living 1 Total 2 Past Encounters Encounter ID Performer Location Encounter Start Date Encounter Closed Date Diagnosis/Indication Diagnosis SNOMED-CT Code Diagnosis ICD10 Code Diagnosis IMO Codes Diagnosis Note [id number] Eddie Boyer MD [facility] [address],[facility] [place] [address] 03/16/2025 15:31:58 03/16/2025 16:22:05 [id number] MD [facility] [place] [address] [address] 03/16/2025 15:32:18 03/16/2025 17:50:17 Amenorrhea 86696993 N91.2 [id number] this patient is a 35-year-ol d female who presents for amenorrhea . She is a positive test. Ultrasound revealed a 1st trimester gestation. Patient has no complaints . We talked about early care. Talked about genetic screening. We talked about her ultrasound results. We talked about the 12 week ultrasound that has genetic screening components . She was given recommenda tions on exercise, diet, over-the-c ounter medication s. We reviewed her obstetric history. We reviewed her medical history. We reviewed her social history. She will begin routine care at her next visit. [id number] Eddie Boyer MD [facility] [address],[place] [address] 03/23/2025 11:37:31 03/23/2025 13:57:30 Threatened miscarriage [id number] O20.0 Z3A.09 [id number] Eddie Boyer MD [facility] [address],[place] [address] 03/26/2025 15:48:05 03/26/2025 16:29:12 Threatened miscarriage [id number] O20.0 O20.9 Z3A.09 [id number] Eddie Boyer MD [facility] [address] [address] 03/26/2025 16:16:41 03/31/2025 09:00:13 care status [id number] Z34.81 [id number] Eddie Boyer MD [facility] [address] [address] 04/15/2025 16:55:49 04/15/2025 17:41:59 Missed miscarriage 67455822 O02.1 Z3A.13 85363 [id number] Kristie Chery CNM [facility] [address],[place] [address] 04/15/2025 16:56:42 04/17/2025 10:51:15 Missed miscarriage 98296276 O02.1 [id number] discussed US results with Dr. Beerreview ed with pt and ,di scussed options risks and benefitswi ll f/u with pt tomorrowif any concerns call office or emergency line [id number] Eddie Boyer MD [facility] [address] [address] 04/17/2025 08:39:47 04/21/2025 16:56:01 [id number] Eddie Boyer MD [facility] [address] [address] 04/23/2025 15:50:56 04/23/2025 16:45:02 Missed miscarriage [id number] O02.1 01307 this patient presents for postop follow-up. She is 1 week postop from a suction D&C. She is recovering normally. Her bleeding is minimal. She has no foul-smell ing vaginal discharge. She denies any nausea, vomiting, fever, chills. We discussed contracept ion. We discussed future . She will follow up for a repeat test. [id number] RAN CAROLINA MD [facility] [address] [address] 06/02/2025 14:14:35 06/04/2025 15:24:01 Miscarriage [id number] O03.9 63835 - miscarriag e at 12 weeks, preceded by large DONG, subjective ly low TRANG and abnormal positionin g of fetus at 12 weeks (hyperflex ed neck)- hx of vaginal delivery at 36 weeks, c/b PPROM at 36 weeks- discussed that in most cases, causes of miscarriag es in 1st trimester are hard to identify; would think less likely due to chromosoma l cause in this case given developmen t until 12 weeks, as well as normal NIPT; discussed that NIPT does not screen for all chromosoma l issues- likely due to large subchorion ic hematoma and possible early CHAOS (chronic abruption and oligohydra mnios syndrome)- will check APLS and TSH labs for possible alternate etiology though unlikely- patient reports easy bruising/b leeding since miscarriag e, will check CBC- discussed lack of research regarding 1st trimester loss including low level evidence for any meaningful interventi ons to prevent miscarriag e. Discussed bASA is low risk, has been shown in some studies to improve outcomes. Discussed lack of evidence for progestero ne supplement ation in early , as low progestero ne is usually a side effect of nonviable and not a cause- discussed ALA (alpha lipoic acid) data is lacking, though likely low risk to supplement in next - would recommend early bHCG trend with next , could add progestero ne level if desired by patient- recommend bASA and vitamin while TTC- ok to supplement ALA if desired- do not recommend bed rest or other activity restrictio ns as this has not been shown to improve outcomes and can cause deconditio lesly- ok to start TTC whenever patient feels ready; patient to call with positive test [id number] RAN CAROLINA MD [facility] [address],[place] [address] 08/31/2025 17:25:29 08/31/2025 18:01:25 care: obstetric risk [id number] O09.291 O36.80X0 Z3A.01 [id number] RAN CAROLINA MD [facility] [address] [address] 09/15/2025 16:18:19 09/15/2025 16:43:16 [id number] RAN CAROLINA MD [facility] [address] [address] 09/15/2025 16:19:51 09/16/2025 08:51:00 test positive [id number] Z32.01 [id number] 1. Exam today within normal limits.2. Ultrasound today confirms GA and viability. EDC . GC/Clamydi a testing done: will f/u as indicated. 4. ACOG guidelines and plan of care for reviewed with patient. All questions answered.5 . Return to office at 12 weeks for new OB visit6. Will need new OB labs at next visit.7. Genetic screening: desires at 10 weeks Lupus anti coagulant disorder [id number] R76.0 [id number] - repeat negative- r/b of ppx lovenox discussed with patient who would like to continue during due to concern for possible APLS- also taking bASA- plan for MFM consult Health Concerns Section Related Observation LastModified by Organization Riki beal LastModified Time None Recorded Concern Status LastModified by Organization Details LastModified Time None Recorded Advance Directives Directive N: Payers Insurance Date Sequence Insurance Name Policy Number Policy Mas Covered Member ID Mas Member ID Guarantor Name 09/12/2025 1 [facility] [id number] James Bolanos [id number] Ania Bolanos 06/18/2025 PAYMENT PLAN Ania Bolanos 06/09/2025 PAYMENT PLAN Ania Bolanos Notes Date Note Type Note Provider Name and Address Organization Details Recorded Time 04/23/2025 text/html this patient presents for postop follow-up. She is 1 week postop from a suction D&C. She is recovering normally. Her bleeding is minimal. She has no foul-smelling vaginal discharge. She denies any nausea, vomiting, fever, chills. We discussed contraception. We discussed future . She will follow up for a repeat test. Eddie Boyer MD [address], [place], [address], [facility] 04/23/2025 16:40:46 06/02/2025 text/html Patient presents as follow up after late first trimester miscarriage. Her was complicated by a large subchorionic hematoma seen at her first US at 8 weeks. She had daily bleeding, sometimes very heavy throughout the . She was seen at [facility] at 12 weeks and it was noted to have subjectively low TRANG and hyperflexed neck on US. Follow up US at 13 weeks unfortunately diagnosed a miscarriage with no FHT and anhydramnios. She underwent suction D&C without complications. Her periods since that time have been heavier but regular. She is interested in trying to conceive in the next 1-2 months. She is interested in discussing potential causes of this miscarriage and what to do to prevent another miscarriage. RAN CAROLINA MD [address], [place], [address], [facility] 06/04/2025 13:14:16 09/15/2025 text/html ROS as noted in the HPI Presents to the office today to confirm . Patient denies any problems up to this point with her . Patient denies cramping or vaginal bleeding. G1: , PPROM at 36 weeksG2: miscarriage at 12 weeks, D&C Had positive lupus anticoagulant x1, negative at beginning of . On lovenox ppx for possible APLS. Plan for [facility] consultation. Patient is to Alan. Lives with partner and son, plus service dog and personal dog. 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 Denies tobacco/EtOH/illici ts. RAN CAROLINA MD [address], [place], [address], [place] [facility] 09/15/2025 18:04:59 OBGyn Episode Ob Episode Information Episode Created Date Number of Fetuses Patient Bloodtype Patient rh Status Prepregnancy Weight lbs Domestic Partner Domestic Partner Phone Father Name Aircraft Shipping Checker Status 03/26/20 1 A Positive 167 Alan Bolanos CLOSED Fetus Data First Name Last Name Admitted to NICU Weight (g) Sex Living Outcome Pediatric Complications Fetus ID Race Codes Race Delivery Type M , Spontane ous [id number] Problems Problem Notes Problem Name Start Date End Date Resolution Snomed Code Not e Subchorionic hematoma 03/26/2025 [id number] 04 Heavy bleeding several days - Referral faxed to [facility] 03/26/25 Scheduled 04/08/25 230 Level II us only04/22/[facility] us Marlo Calculation Initial Marlo Date Initial Exam Date Initial Exam Provider Initial Ultrasound Date Last Menstrual Period Date Ultra Sound Weeks Gestation 10/15/2025 03/16/2025 [email or web address] 03/16/2025 01/08/2025 8 Eighteen To Twenty Week Marlo Update Ultra Sound Date Fundal Height At Umbil Quickening Date Ultra Sound Latest Weeks Gestation Final Marlo Confirmed By Final Marlo Confirmed Date Final Marlo Date Ultra Sound Latest Days Gestation 0 [email or web address] 03/26/2025 10/21/20 25 0 Pre- Flowsheet Flowsheet Date 03/26/2025 [place] Score Blood Edema Fundus Height Fundus Units Glucose Ketones Leukocytes Nitrite Labor Signs Protein Cervic Dilation Cervic Effacement Cervic Station Type Weight in lbs Pre/Post Dialysis Refused BP Diastolic BP Location Tested BP Systolic BP Type Fetus Heart Rate Present Fetus Movement Comments Flowsheet Date 03/26/2025 [place] Score Blood Edema Fundus Height Fundus Units Glucose Ketones Leukocytes Nitrite Labor Signs Protein Cervic Dilation Cervic Effacement Cervic Station Type Weight in lbs Pre/Post Dialysis Refused Weight 172.962252144248 BP Diastolic BP Location Tested BP Systolic BP Type 74 L arm 111 sitting Fetus Heart Rate Present A 164 Fetus Movement Comments this patient is a 35-year-ol d multiparous female at 12 weeks' gestation who presents for initial care. She has a history of term vaginal births. Her medical, surgical, obstetric history is unremarkable. She is vaccinated. She was given precautions recommendations for . We talked about vaccines in . Talked about care in detail. She is having genetic testing. She had a normal 12 week ultrasound. To begin routine care. Flowsheet Date 04/15/2025 [place] Score Blood Edema Fundus Height Fundus Units Glucose Ketones Leukocytes Nitrite Labor Signs Protein Cervic Dilation Cervic Effacement Cervic Station Type Weight in lbs Pre/Post Dialysis Refused BP Diastolic BP Location Tested BP Systolic BP Type Fetus Heart Rate Present Fetus Movement Comments Flowsheet Date 04/15/2025 [place] Score Blood Edema Fundus Height Fundus Units Glucose Ketones Leukocytes Nitrite Labor Signs Protein Cervic Dilation Cervic Effacement Cervic Station Type Weight in lbs Pre/Post Dialysis Refused 173.926143366525 BP Diastolic BP Location Tested BP Systolic BP Type 78 127 Fetus Heart Rate Present Fetus Movement A No Comments Patient had miscarraige Menstrual History Last Menstrual Date Menses Monthly On Bcp Conception Prior Menses Frequency Hcg Plus Date Menarche Onset Age 0201/08/2025 Delivery Information Delivery Date Delivery Type Labor Anesthesia Weeks Gestation Incision Type Labor Labor Length Hrs Delivered By Post Complications Tubal Sterilization Discharge Date Comments 5 13 Discharge Information Feeding Method Contraceptive Method Maternal HG B and HCT Levels Ob Episode Information Episode Created Date Number of Fetuses Patient Bloodtype Patient rh Status Prepregnancy Weight lbs Domestic Partner Domestic Partner Phone Father Name Aircraft Shipping Checker Status 03/16/20 25 1 CLOSED Fetus Data First Name Last Name Admitted to NICU Weight (g) Sex Living Outcome Pediatric Complications Fetus ID Race Codes Race Delivery Type M Prematur e [id number] Vaginal Delivery Marlo Calculation Initial Marlo Date Initial Exam Date Initial Exam Provider Initial Ultrasound Date Last Menstrual Period Date Ultra Sound Weeks Gestation 0 Eighteen To Twenty Week Marlo Update Ultra Sound Date Fundal Height At Umbil Quickening Date Ultra Sound Latest Weeks Gestation Final Marlo Confirmed By Final Marlo Confirmed Date Final Marlo Date Ultra Sound Latest Days Gestation 0 0 Menstrual History Last Menstrual Date Menses Monthly On Bcp Conception Prior Menses Frequency Hcg Plus Date Menarche Onset Age Delivery Information Delivery Date Delivery Type Labor Anesthesia Weeks Gestation Incision Type Labor Labor Length Hrs Delivered By Post Complications Tubal Sterilization Discharge Date Comments 1 36 Discharge Information Feeding Method Contraceptive Method Maternal HG B and HCT Levels
== END 2025-10-06 11:14 | disposition home or self-care (01) ==
PROVIDERS: PCP Registered Nurse; Visit Provider Obstetrics & Gynecology
DX: O20.0 Threatened abortion (principal); Z3A.12 12 weeks gestation of pregnancy
CPT/HCPCS: 76801